=== PATIENT | female | born 1950 | race Caucasian/White ===

== ENCOUNTER → 2016-09-14 | Outpatient (REF) | payer MEDICARE, MEDICAID ==
[2016-09-14 11:56] LABS: MEAN CORPUSCULAR HEMOGLOBIN 30.8 pg (27.0-33.0); MEAN CORPUSCULAR HGB CONC 32.9 g/dl (32.0-36.5); MEAN CORPUSCULAR VOLUME 93.6 fl (80.0-96.0); RED CELL DISTRIBUTION WIDTH 12.9 % (11.5-14.5); WHITE BLOOD COUNT 8.1 K/mm3 (4.0-10.0)
[2016-09-14 12:45] LABS: ALBUMIN 3.2 GM/DL (3.2-5.2); ALBUMIN/GLOBULIN RATIO 0.94 (1.00-1.93); ALKALINE PHOSPHATASE 103 U/L (45-117); ALT/SGPT 22 U/L (12-78); ANION GAP 8 MEQ/L (8-16); AST/SGOT 13 U/L (15-37); BILIRUBIN,TOTAL 0.3 MG/DL (0.2-1.0); BLOOD UREA NITROGEN 12 MG/DL (7-18); CALCIUM LEVEL 9.3 MG/DL (8.8-10.2); CARBON DIOXIDE LEVEL 29 MEQ/L (21-32); CHLORIDE LEVEL 103 MEQ/L (98-107); CHOLESTEROL LEVEL 164 MG/DL (<200); CREATININE FOR GFR 0.49 MG/DL (0.55-1.02); FREE T4 1.07 NG/DL (0.76-1.46); GLOMERULAR FILTRATION RATE > 60.0 (>45); GLUCOSE, FASTING 170 MG/DL (80-110); POTASSIUM SERUM 4.7 MEQ/L (3.5-5.1); SODIUM LEVEL 140 MEQ/L (136-145); TOTAL PROTEIN 6.6 GM/DL (6.4-8.2); TRIGLYCERIDES LEVEL 194 MG/DL (<150)
== END ==
LOC: M SFHCPLAZ 09:44
PROVIDERS: ATTEND Nurse Practitioner Family
DX: F32.9 Major depressive disorder, single episode, unspecified (principal); E11.65 Type 2 diabetes mellitus with hyperglycemia; E78.2 Mixed hyperlipidemia; E55.9 Vitamin D deficiency, unspecified

== ENCOUNTER → 2016-10-29 | Outpatient (REF) | payer MEDICARE, MEDICAID | LOC: M SFHCPLAZ 09:30 | PROVIDERS: ATTEND Nurse Practitioner Family | DX: G47.00 Insomnia, unspecified (principal) | CPT/HCPCS: 82043; G0463 ==

== ENCOUNTER → 2016-12-07 | Outpatient (CLI) | payer MEDICARE, MEDICAID ==
--- NOTE | 2016-12-07 18:01 | REP ---
LOW DOSE LUNG SCREENING CT: Low dose lung screening CT exam performed in the axial plane. Scattered linear fibrotic scarring is seen bilaterally. In the superior posterior right upper lobe there is a 2 mm nodular opacity. In the right middle lobe medially is a 3 mm nodular opacity with adjacent linear scarring. No other suspicious nodular opacities are seen. There are degenerative changes of the spine. There are atherosclerotic calcifications of thoracic aorta. There is no aneurysmal dilatation of the thoracic aorta. IMPRESSION: Two tiny nodular opacities are seen in the right lung measuring 2 and [address] of the chest in one year. Signed by Mark Ott MD 12/08/2016 12:33 P
== END ==
LOC: M RAD 15:21
PROVIDERS: ATTEND Nurse Practitioner Family
DX: Z87.891 Personal history of nicotine dependence (principal); R91.8 Other nonspecific abnormal finding of lung field

== ENCOUNTER → 2017-01-28 | Outpatient (REF) | payer MEDICARE, MEDICAID ==
[2017-01-28 12:48] LABS: ALBUMIN/GLOBULIN RATIO 1.21 (1.00-1.93); ALKALINE PHOSPHATASE 137 U/L (45-117); ALT/SGPT 41 U/L (12-78); ANION GAP 8 MEQ/L (8-16); AST/SGOT 15 U/L (15-37); BILIRUBIN,TOTAL 0.4 MG/DL (0.2-1.0); BLOOD UREA NITROGEN 9 MG/DL (7-18); CALCIUM LEVEL 9.9 MG/DL (8.8-10.2); CARBON DIOXIDE LEVEL 31 MEQ/L (21-32); CHLORIDE LEVEL 99 MEQ/L (98-107); CREATININE FOR GFR 0.61 MG/DL (0.55-1.02); GLOMERULAR FILTRATION RATE > 60.0 (>45); GLUCOSE, FASTING 294 MG/DL (80-110); POTASSIUM SERUM 3.9 MEQ/L (3.5-5.1); SODIUM LEVEL 138 MEQ/L (136-145); TOTAL PROTEIN 7.3 GM/DL (6.4-8.2)
== END ==
LOC: M SFHCPLAZ 09:51
PROVIDERS: ATTEND Nurse Practitioner Family
DX: E11.65 Type 2 diabetes mellitus with hyperglycemia (principal)

== ENCOUNTER → 2017-04-23 | Outpatient (REF) | payer MEDICARE, MEDICAID ==
[2017-04-23 13:08] LABS: ALBUMIN 3.8 GM/DL (3.2-5.2); ALBUMIN/GLOBULIN RATIO 1.19 (1.00-1.93); ALKALINE PHOSPHATASE 129 U/L (45-117); ALT/SGPT 90 U/L (12-78); ANION GAP 9 MEQ/L (8-16); AST/SGOT 38 U/L (7-37); BILIRUBIN,TOTAL 0.3 MG/DL (0.2-1.0); BLOOD UREA NITROGEN 12 MG/DL (7-18); CALCIUM LEVEL 9.5 MG/DL (8.8-10.2); CARBON DIOXIDE LEVEL 29 MEQ/L (21-32); CHLORIDE LEVEL 103 MEQ/L (98-107); GLOMERULAR FILTRATION RATE > 60.0 (>45); GLUCOSE, FASTING 227 MG/DL (80-110); POTASSIUM SERUM 4.7 MEQ/L (3.5-5.1); SODIUM LEVEL 141 MEQ/L (136-145)
[2017-04-23 13:16] LABS: ESTIMATED AVERAGE GLUCOSE 269 MG/DL (60-110)
== END ==
LOC: M SFHCPLAZ 09:54
DX: E11.65 Type 2 diabetes mellitus with hyperglycemia (principal); E55.9 Vitamin D deficiency, unspecified
CPT/HCPCS: 80053

== ENCOUNTER → 2017-06-15 | Outpatient (CLI) | payer MEDICARE | LOC: M WHC 08:29 | DX: R79.89 Other specified abnormal findings of blood chemistry (principal) | CPT/HCPCS: 76705 ==

== ENCOUNTER → 2017-07-13 | Outpatient (REF) | payer MEDICARE, MEDICAID ==
[2017-07-13 13:52] LABS: ALBUMIN 3.9 GM/DL (3.2-5.2); ALBUMIN/GLOBULIN RATIO 1.22 (1.00-1.93); ALKALINE PHOSPHATASE 126 U/L (45-117); ALT/SGPT 42 U/L (12-78); ANION GAP 9 MEQ/L (8-16); AST/SGOT 24 U/L (7-37); BILIRUBIN,TOTAL 0.4 MG/DL (0.2-1.0); BLOOD UREA NITROGEN 9 MG/DL (7-18); CALCIUM LEVEL 9.7 MG/DL (8.8-10.2); CARBON DIOXIDE LEVEL 26 MEQ/L (21-32); CHLORIDE LEVEL 102 MEQ/L (98-107); CREATININE FOR GFR 0.73 MG/DL (0.55-1.30); GLOMERULAR FILTRATION RATE > 60.0 (>45); GLUCOSE, FASTING 285 MG/DL (70-100); POTASSIUM SERUM 4.4 MEQ/L (3.5-5.1); SODIUM LEVEL 137 MEQ/L (136-145); TOTAL PROTEIN 7.1 GM/DL (6.4-8.2)
[2017-07-13 14:00] LABS: TOTAL 25(OH) VITAMIN D 28.9 NG/ML (30.0-100.0)
[2017-07-13 14:43] LABS: ESTIMATED AVERAGE GLUCOSE 266 MG/DL (60-110); HEMOGLOBIN A1c 10.9 %
== END ==
LOC: M SFHCPLAZ 10:53
DX: R79.89 Other specified abnormal findings of blood chemistry (principal); E11.65 Type 2 diabetes mellitus with hyperglycemia; E55.9 Vitamin D deficiency, unspecified
CPT/HCPCS: 80053

== ENCOUNTER → 2017-11-17 | Outpatient (REF) | payer MEDICARE, MEDICAID ==
[2017-11-17 13:07] LABS: ALBUMIN 4.1 GM/DL (3.2-5.2); ALBUMIN/GLOBULIN RATIO 1.24 (1.00-1.93); ALKALINE PHOSPHATASE 149 U/L (45-117); ALT/SGPT 115 U/L (12-78); ANION GAP 8 MEQ/L (8-16); AST/SGOT 48 U/L (7-37); BILIRUBIN,TOTAL 0.5 MG/DL (0.2-1.0); BLOOD UREA NITROGEN 10 MG/DL (7-18); CALCIUM LEVEL 9.6 MG/DL (8.8-10.2); CARBON DIOXIDE LEVEL 28 MEQ/L (21-32); CHLORIDE LEVEL 104 MEQ/L (98-107); CHOLESTEROL LEVEL 167 MG/DL (<200); CHOLESTEROL RISK RATIO 2.879 (<5); CREATININE FOR GFR 0.59 MG/DL (0.55-1.30); GLOMERULAR FILTRATION RATE > 60.0 (>45); GLUCOSE, FASTING 189 MG/DL (70-100); HDL CHOLESTEROL 58 MG/DL (>40); NON-HDL-C 109 MG/DL; POTASSIUM SERUM 4.1 MEQ/L (3.5-5.1); SODIUM LEVEL 140 MEQ/L (136-145); TOTAL PROTEIN 7.4 GM/DL (6.4-8.2); TRIGLYCERIDES LEVEL 150 MG/DL (<150)
[2017-11-17 13:25] LABS: ESTIMATED AVERAGE GLUCOSE 209 MG/DL (60-110); HEMOGLOBIN A1c 8.9 %
[2017-11-17 13:34] LABS: MALB URINE SIEMENS 74.7 MG/L; MAU/CREAT RATIO 45.8 MCG/MG (0.0-30.0)
== END ==
LOC: M SFHCPLAZ 09:03
DX: E11.65 Type 2 diabetes mellitus with hyperglycemia (principal); E78.2 Mixed hyperlipidemia
CPT/HCPCS: 80053

== ENCOUNTER → 2018-03-30 | Outpatient (REF) | payer MEDICARE, MEDICAID ==
[2018-03-30 12:22] LABS: ALBUMIN 3.7 GM/DL (3.2-5.2); ALBUMIN/GLOBULIN RATIO 1.19 (1.00-1.93); ALKALINE PHOSPHATASE 158 U/L (45-117); ALT/SGPT 44 U/L (12-78); ANION GAP 9 MEQ/L (8-16); AST/SGOT 30 U/L (7-37); BILIRUBIN,TOTAL 0.3 MG/DL (0.2-1.0); BLOOD UREA NITROGEN 11 MG/DL (7-18); CALCIUM LEVEL 9.3 MG/DL (8.8-10.2); CARBON DIOXIDE LEVEL 25 MEQ/L (21-32); CHLORIDE LEVEL 106 MEQ/L (98-107); CREATININE FOR GFR 0.71 MG/DL (0.55-1.30); GLOMERULAR FILTRATION RATE > 60.0 (>39); GLUCOSE, FASTING 252 MG/DL (70-100); POTASSIUM SERUM 4.1 MEQ/L (3.5-5.1); SODIUM LEVEL 140 MEQ/L (136-145); TOTAL PROTEIN 6.8 GM/DL (6.4-8.2)
[2018-03-30 14:15] LABS: ESTIMATED AVERAGE GLUCOSE 278 MG/DL (60-110); HEMOGLOBIN A1c 11.3 %
== END ==
LOC: M SFHCPLAZ 08:42
DX: R94.5 Abnormal results of liver function studies (principal); E11.65 Type 2 diabetes mellitus with hyperglycemia
CPT/HCPCS: 80053

== ENCOUNTER → 2018-07-05 | Outpatient (CLI) | payer MEDICARE ==
--- NOTE | 2018-07-05 18:26 | REP ---
RIGHT UPPER QUADRANT ULTRASOUND: 07/05/2018. Comparison: 06/15/2017. Clinical history: Elevated LFTs. Findings: Sonographic evaluation shows the liver with a subtly heterogeneous or coarsened echotexture, particularly in the right lobe. No gross hepatic mass or intrahepatic biliary dilatation. Hepatic contours are fairly smooth. No hepatic cyst evident nor ascites. Gallbladder measures 9.1 x 3.2 x 2 cm with normal wall thickness of 2 mm. No pericholecystic fluid. Some sludge but no stone visible. Common duct 5.8 mm, normal for age. Pancreas grossly unremarkable. The right kidney is 11.7 x 4.9 x 4.9 cm. Impression: 1. The coarsened slightly heterogeneous echotexture to the right hepatic lobe may reflect some underlying liver disease. I do not see discrete mass, hepatomegaly, intrahepatic biliary dilatation nor adjacent ascites. 2. Gallbladder with some small amounts of sludge but normal wall thickness and no stone or mass. 3. Common duct 5.8 mm and normal without a filling defect. Pancreas and right kidney unremarkable.
== END ==
LOC: M WHC 09:07
PROVIDERS: ATTEND Nurse Practitioner Family
DX: R10.11 Right upper quadrant pain (principal)

== ENCOUNTER → 2018-08-04 | Outpatient (REF) | payer MEDICARE, MEDICAID ==
[2018-08-04 13:15] LABS: ALBUMIN 3.7 GM/DL (3.2-5.2); ALT/SGPT 20 U/L (12-78); BILIRUBIN,TOTAL 0.5 MG/DL (0.2-1.0); BLOOD UREA NITROGEN 5 MG/DL (7-18); CALCIUM LEVEL 9.5 MG/DL (8.8-10.2); CARBON DIOXIDE LEVEL 30 MEQ/L (21-32); CHLORIDE LEVEL 104 MEQ/L (98-107); CHOLESTEROL LEVEL 137 MG/DL (<200); CHOLESTEROL RISK RATIO 2.584 (<5); CREATININE FOR GFR 0.56 MG/DL (0.55-1.30); GLOMERULAR FILTRATION RATE > 60.0 (>39); GLUCOSE, FASTING 178 MG/DL (70-100); HDL CHOLESTEROL 53 MG/DL (>40); LDL CHOLESTEROL 62 MG/DL (<100); NON-HDL-C 84 MG/DL; POTASSIUM SERUM 3.8 MEQ/L (3.5-5.1); SODIUM LEVEL 141 MEQ/L (136-145); TRIGLYCERIDES LEVEL 109 MG/DL (<150)
[2018-08-04 13:27] LABS: HEMOGLOBIN A1c 11.3 %
== END ==
LOC: M SFHCPLAZ 10:02
PROVIDERS: ATTEND Nurse Practitioner Family
DX: E11.65 Type 2 diabetes mellitus with hyperglycemia (principal)

== ENCOUNTER → 2018-08-10 | Outpatient (CLI) | payer MEDICARE, MEDICAID ==
[2018-08-10 12:10] LABS: HEMATOCRIT 43.4 % (36.0-47.0); MEAN CORPUSCULAR HEMOGLOBIN 28.9 pg (27.0-33.0); MEAN CORPUSCULAR HGB CONC 32.3 g/dl (32.0-36.5); MEAN CORPUSCULAR VOLUME 89.5 fl (80.0-96.0); PLATELET COUNT, AUTOMATED 101 10^3/uL (150-450); RED BLOOD COUNT 4.85 10^6/uL (4.00-5.40); WHITE BLOOD COUNT 8.2 10^3/uL (4.0-10.0)
[2018-08-10 12:21] LABS: INR 0.99; PROTHROMBIN TIME 13.2 SECONDS (12.1-14.4)
[2018-08-10 12:22] LABS: PARTIAL THROMBOPLASTIN TIME 34.3 SECONDS (25.4-37.6)
[2018-08-10 12:35] LABS: ALBUMIN 3.5 GM/DL (3.2-5.2); ALT/SGPT 19 U/L (12-78); AMYLASE 33 U/L (25-115); BILIRUBIN,TOTAL 0.4 MG/DL (0.2-1.0); BLOOD UREA NITROGEN 10 MG/DL (7-18); CALCIUM LEVEL 9.1 MG/DL (8.8-10.2); CARBON DIOXIDE LEVEL 30 MEQ/L (21-32); CHLORIDE LEVEL 107 MEQ/L (98-107); CREATININE FOR GFR 0.61 MG/DL (0.55-1.30); GLOMERULAR FILTRATION RATE > 60.0 (>39); GLUCOSE, FASTING 186 MG/DL (70-100); LIPASE 109 U/L (73-393); POTASSIUM SERUM 3.6 MEQ/L (3.5-5.1); SODIUM LEVEL 143 MEQ/L (136-145); TOTAL PROTEIN 6.6 GM/DL (6.4-8.2)
== END ==
LOC: M LAB 11:21
PROVIDERS: ATTEND Internal Medicine Gastroenterology
DX: R16.0 Hepatomegaly, not elsewhere classified (principal)

== ENCOUNTER → 2018-08-11 | Outpatient (REF) | payer MEDICARE, MEDICAID ==
[2018-08-11 17:06] LABS: MAU/CREAT RATIO 63.6 MCG/MG (0.0-30.0)
== END ==
LOC: M SFHCPLAZ 14:42
PROVIDERS: ATTEND Nurse Practitioner Family
DX: E11.65 Type 2 diabetes mellitus with hyperglycemia (principal)

== ENCOUNTER → 2018-08-17 | Outpatient (CLI) | payer MEDICARE, MEDICAID ==
[~2018-08-17] MED LIST: GASTROGRAFIN SOLUTION 30ML (Q9963) As Ordered ONE; ISOVUE-370 76% 100ML VIAL (Q9967) As Ordered ONE
--- NOTE | 2018-08-17 15:17 | REP ---
CT ABDOMEN AND PELVIS WITH IV AND ORAL CONTRAST: HISTORY: Hepatomegaly. Abnormal weight loss. COMPARISON SONOGRAPHY: July 05, 2018 CT CONTRAST DOSE: 100 mL of intravenous Isovue [address] FINDINGS: Digital preliminary force adjustment supervisor radiograph shows a prominent hepatic silhouette. Bowel gas pattern is normal. The lung bases are clear on axial CT images apart from some minimal linear fibrosis in the left base. There are normal-sized epicardial fat lymph nodes noted incidentally. There is a lymph node adjacent to the distal esophagus at the diaphragmatic hiatus measuring 10 mm in short-axis dimension. There are two normal-sized pericaval lymph nodes at this level in the suprahepatic vena cava. The left lobe of the liver is hypertrophied. The liver span is near the upper range of normal in size measuring 15.5 cm in the midclavicular line. Liver contour is micronodular. This may reflect early cirrhosis. There is also mild diffuse fatty infiltration of the liver. No focal liver mass lesion is seen. The spleen is borderline in size measuring 12.7 cm in greatest diameter. There is bilateral adrenal hyperplasia, mild in degree. No abnormalities noted in the gallbladder. The pancreas is unremarkable. The kidneys enhance symmetrically. There are tiny cortical cysts in each superior pole. There appears to be a 2 mm intrarenal calculus in the lower pole of the left kidney. No hydronephrosis is seen. There is mural thickening diffusely affecting the colon, most prominent from splenic flexure through sigmoid segments. There is no evidence of diverticulosis or diverticulitis. Findings are more compatible with enterocolitis. Small bowel loops are unremarkable. Appendix is not directly visualized. There is no inflammatory change. Ileocecal valve and terminal ileum are unremarkable. No abnormal fluid collection is observed. IMPRESSION: Hepatomegaly with fatty infiltration, a micronodular contour, hypertrophy of the left lobe consistent with early cirrhosis. No evidence of ascites. Enterocolitis picture with mural thickening moderate in degree affecting the left colon from splenic flexure through sigmoid segment. Scattered normal-sized upper abdominal lymph nodes. Tiny intrarenal calculus lower pole left kidney. Fairly advanced vascular calcification. Electronically Signed by Germán Cherry MD 08/17/2018 04:05 P
== END ==
LOC: M RAD 11:16
PROVIDERS: ATTEND Internal Medicine Gastroenterology
DX: R16.0 Hepatomegaly, not elsewhere classified (principal); K76.0 Fatty (change of) liver, not elsewhere classified; N20.0 Calculus of kidney; R63.4 Abnormal weight loss
CPT/HCPCS: 74177; Q9963; Q9967

== ENCOUNTER → 2018-08-23 | Outpatient (REF) | payer MEDICARE, MEDICAID ==
[2018-08-24 15:33] LABS: CLOSTRIDIUM DIFFICILE PCR NEGATIVE (NEGATIVE)
== END ==
LOC: M LAB REF 14:08
PROVIDERS: ATTEND Internal Medicine Gastroenterology
DX: R19.7 Diarrhea, unspecified (principal)

== ENCOUNTER 2018-08-30 09:53 | Day surgery (SDC) | payer MEDICARE, MEDICAID ==
[~2018-08-30] VITALS: Ht 180.3 cm; Wt 58.1 kg
[~2018-08-30 09:53] MED LIST changes: +ATOR40TA75 PO; +ECOT81TA5 PO; -GASTROGRAFIN SOLUTION 30ML (Q9963) As Ordered ONE; -ISOVUE-370 76% 100ML VIAL (Q9967) As Ordered ONE; +JANU50TA8 PO; +LANTINJ4 SC; +NS 1,000 ML IV ONE; +OMEP40CA2 PO; +PAXI40TA10 PO
[2018-08-30] MEDS ORDERED: PROPOFOL 200 MG/20 ML VIAL As Ordered ONE (09:58)
[2018-08-30] MEDS ORDERED: LIDOCAINE 2% INJ 100 MG/5 ML SDV (FOR ANES.) As Ordered ONE (09:58)
--- NOTE | 2018-08-30 12:21 | ROOR ---
Patient Name: Natalia Anders Procedure Date: 08/30/2018 12:01 PM Date of : 1950 Age: 68 Room: [facility] Gender: Female Note Status: Finalized Procedure: Upper GI endoscopy Indications: Weight loss Providers: Nader DIAZ MD Referring MD: Nataliya Quiñones NP Requesting Provider: Medicines: Monitored Anesthesia Care Complications: No immediate complications. Procedure: Pre-Anesthesia Assessment: - The heart rate, respiratory rate, oxygen saturations, blood pressure, adequacy of pulmonary ventilation, and response to care were monitored throughout the procedure. The Endoscope was introduced through the mouth, and advanced to the second part of duodenum. The upper GI endoscopy was accomplished without difficulty. The patient tolerated the procedure well. Findings: Grade II varices were found in the middle third of the esophagus and in the lower third of the esophagus. Four bands were successfully placed with complete eradication, resulting in deflation of varices. There was no bleeding at the end of the procedure. Mild portal hypertensive gastropathy was found in the gastric fundus and in the gastric body. This was biopsied with a cold forceps for histology. The exam was otherwise without abnormality. Impression: - Grade II esophageal varices. Completely eradicated. Banded. - Portal hypertensive gastropathy. Biopsied. - The examination was otherwise normal. Recommendation: - Full liquid diet for 1 week. - Repeat upper endoscopy in 1 month for retreatment. - My office will call you to reschedule the procedure. - Give a beta jl with dosage titrated by the heart rate. - Start/continue a Non-selective Beta Jl such as Propranolol or Nadolol, titrate to heart rate. - (the script was sent to your pharmacy on file) Nader Diaz MD Nader DIAZ MD 08/30/2018 12:21:12 PM Electronically signed by Nader DIAZ MD Number of Addenda: 0 Note Initiated On: 08/30/2018 12:01 PM Estimated Blood Loss: Estimated blood loss: none.
[2018-08-30] MEDS ORDERED: LABETALOL HCL 100 MG/20 ML VIAL As Ordered ONE (12:26)
[2018-08-30] MEDS ORDERED: fentaNYL 100 MCG/2 ML INJECTION (J3010) As Ordered ONE (12:32)
--- NOTE | 2018-08-30 12:45 | ROOR ---
Patient Name: Natalia Anders Procedure Date: 08/30/2018 12:02 PM Date of : 1950 Age: 68 Room: [facility] Gender: Female Note Status: Finalized Procedure: Colonoscopy Indications: Weight loss Providers: Nader DIAZ MD Referring MD: Nataliya Quiñones NP Requesting Provider: Medicines: Monitored Anesthesia Care Complications: No immediate complications. Procedure: Pre-Anesthesia Assessment: - The heart rate, respiratory rate, oxygen saturations, blood pressure, adequacy of pulmonary ventilation, and response to care were monitored throughout the procedure. The Colonoscope was introduced through the anus and advanced to the cecum, identified by appendiceal orifice and ileocecal valve. The colonoscopy was performed without difficulty. The patient tolerated the procedure well. The quality of the bowel preparation was poor. Findings: The perianal and digital rectal examinations were normal. (Colon Prep was POOR, Inadequate Visualisation) Three semi-pedunculated polyps were found in the hepatic flexure and distal ascending colon. The polyps were 5 to 10 mm in size. These polyps were removed with a hot snare. Resection and retrieval were complete. To prevent bleeding after the polypectomy, two hemostatic clips were successfully placed. There was no bleeding at the end of the procedure. Internal hemorrhoids were found during retroflexion. The hemorrhoids were moderate. Impression: - (Colon Prep was POOR, Inadequate Visualisation) - Three 5 to 10 mm polyps at the hepatic flexure and in the distal ascending colon, removed with a hot snare. Resected and retrieved. Clips were placed. - Internal hemorrhoids. Recommendation: - Repeat colonoscopy at next available appointment (within 3 months) because the bowel preparation was poor. - Return to my office in 2 weeks. Nader Diaz MD Nader DIAZ MD 08/30/2018 12:44:58 PM Electronically signed by Nader DIAZ MD Number of Addenda: 0 Note Initiated On: 08/30/2018 12:02 PM Estimated Blood Loss: Estimated blood loss: none.
[2018-08-30 13:17] VITALS: BP 162/71
== END 2018-08-30 13:40 | disposition home or self-care (01) ==
LOC: M OPP 09:53
PROVIDERS: ATTEND Internal Medicine Gastroenterology
DX: D12.2 Benign neoplasm of ascending colon (principal); D12.3 Benign neoplasm of transverse colon; K64.8 Other hemorrhoids; I85.00 Esophageal varices without bleeding; K76.6 Portal hypertension; K31.89 Other diseases of stomach and duodenum; R63.4 Abnormal weight loss

== ENCOUNTER → 2018-11-02 | Outpatient (REF) | payer MEDICARE, MEDICAID ==
[~2018-11-02] MED LIST changes: -NS 1,000 ML IV ONE
[2018-11-02 11:20] LABS: ALBUMIN 3.9 GM/DL (3.2-5.2); ALT/SGPT 63 U/L (12-78); BILIRUBIN,TOTAL 0.4 MG/DL (0.2-1.0); BLOOD UREA NITROGEN 11 MG/DL (7-18); CALCIUM LEVEL 9.8 MG/DL (8.8-10.2); CARBON DIOXIDE LEVEL 28 MEQ/L (21-32); CHLORIDE LEVEL 107 MEQ/L (98-107); CREATININE FOR GFR 0.61 MG/DL (0.55-1.30); GLOMERULAR FILTRATION RATE > 60.0 (>39); GLUCOSE, FASTING 148 MG/DL (70-100); POTASSIUM SERUM 4.3 MEQ/L (3.5-5.1); SODIUM LEVEL 142 MEQ/L (136-145); TOTAL PROTEIN 7.3 GM/DL (6.4-8.2)
== END ==
LOC: M SFHCPLAZ 09:52
PROVIDERS: ATTEND Nurse Practitioner Family
DX: E11.65 Type 2 diabetes mellitus with hyperglycemia (principal)

== ENCOUNTER → 2018-11-29 | Outpatient (CLI) | payer MEDICARE, MEDICAID ==
[2018-11-29 17:57] LABS: IRON (FE) 142 UG/DL (50-170); PERCENT SATURATION 35.2 % (13.2-45.0); TOTAL IRON BINDING CAPACITY 403 UG/DL (250-450)
[2018-11-30 10:34] LABS: HEPATITIS B SURFACE ANTIGEN NEGATIVE (NEGATIVE)
[2018-11-30 11:01] LABS: HEPATITIS B CORE ANTIBODY IGM NEGATIVE (NEGATIVE); HEPATITIS C VIRUS ABY INDEX 0.1 INDEX (<0.8)
[2018-11-30 11:03] LABS: HEPATITIS A ANTIBODY IGM NEGATIVE (NEGATIVE)
[2018-12-03 00:06] LABS: ANCA-ATYPICAL <1:20 titer (Neg:<1:20); ANTI-MITOCHONDRIAL ANTIBODY <20.0 Units (0.0-20.0); ANTINUCLEAR ANTIBODIES DIRECT Negative (Negative); CYTOPLASMIC NEUTROP AB ANCA-C <1:20 titer (Neg:<1:20); LIVER-KIDNEY MICROSOMAL ABY <20.1 Units (0.0-20.0); PERINUCLEAR AB ANCA-P <1:20 titer (Neg:<1:20)
== END ==
LOC: M LAB 16:25
PROVIDERS: ATTEND Internal Medicine Gastroenterology
DX: K74.60 Unspecified cirrhosis of liver (principal)

== ENCOUNTER 2019-01-31 10:53 | Day surgery (SDC) | payer MEDICARE, MEDICAID ==
[~2019-01-31] VITALS: Ht 154.9 cm; Wt 59.4 kg
[~2019-01-31 10:53] MED LIST changes: +BUSP1TAB PO; +LIDOCAINE 2% INJ 100 MG/5 ML SDV (FOR ANES.) As Ordered ONE; +LISI-542 PO; +NS 1,000 ML IV ONE; -OMEP40CA2 PO; +OMEP40CA97 PO; +propofoL 200 MG/20 ML VIAL As Ordered ONE
--- NOTE | 2019-01-31 12:02 | ROOR ---
Patient Name: Natalia Anders Procedure Date: 01/31/2019 11:43 AM Date of : 1950 Age: 68 Room: [facility] Gender: Female Note Status: Finalized Procedure: Upper GI endoscopy Indications: Follow-up of esophageal varices, For therapy of esophageal varices Providers: Nader DIAZ MD Referring MD: Nataliya Quiñones NP Requesting Provider: Medicines: Monitored Anesthesia Care Complications: No immediate complications. Procedure: Pre-Anesthesia Assessment: - The heart rate, respiratory rate, oxygen saturations, blood pressure, adequacy of pulmonary ventilation, and response to care were monitored throughout the procedure. The Endoscope was introduced through the mouth, and advanced to the second part of duodenum. The upper GI endoscopy was accomplished without difficulty. The patient tolerated the procedure well. Findings: Grade II varices were found in the lower third of the esophagus. Four bands were successfully placed with complete eradication, resulting in deflation of varices. There was no bleeding during and at the end of the procedure. The entire examined stomach was normal. The examined duodenum was normal. Impression: - Grade II esophageal varices. Primary prevention/Completely eradicated. Banded. - Normal stomach. - Normal examined duodenum. - No specimens collected. Recommendation: - Repeat upper endoscopy in 2 months for retreatment. - Return to my office in 1 month. Nader Diaz MD Nader DIAZ MD 01/31/2019 12:02:10 PM Electronically signed by Nader DIAZ MD Number of Addenda: 0 Note Initiated On: 01/31/2019 11:43 AM Estimated Blood Loss: Estimated blood loss: none.
[2019-01-31] MEDS ORDERED: ESMOLOL INJ 100MG/10ML VIAL As Ordered ONE (12:10)
--- NOTE | 2019-01-31 12:24 | ROOR ---
Patient Name: Natalia Anders Procedure Date: 01/31/2019 11:43 AM Date of : 1950 Age: 68 Room: [facility] Gender: Female Note Status: Finalized Procedure: Colonoscopy Indications: Screening for colorectal malignant neoplasm Providers: Nader DIAZ MD Referring MD: Nataliya Quiñones NP Requesting Provider: Medicines: Monitored Anesthesia Care Complications: No immediate complications. Procedure: Pre-Anesthesia Assessment: - The heart rate, respiratory rate, oxygen saturations, blood pressure, adequacy of pulmonary ventilation, and response to care were monitored throughout the procedure. The Colonoscope was introduced through the anus and advanced to the terminal ileum, with identification of the appendiceal orifice and IC valve. The colonoscopy was somewhat difficult due to unsatisfactory bowel prep. Successful completion of the procedure was aided by lavage. The patient tolerated the procedure well. The quality of the bowel preparation was fair. Findings: The perianal and digital rectal examinations were normal. Three sessile polyps were found in the proximal descending colon and splenic flexure. The polyps were 4 to 5 mm in size. These polyps were removed with a cold snare. Resection and retrieval were complete. Multiple medium-mouthed diverticula were found in the sigmoid colon. The exam was otherwise without abnormality on direct and retroflexion views. Impression: - Preparation of the colon was fair. - Three 4 to 5 mm polyps in the proximal descending colon and at the splenic flexure, removed with a cold snare. Resected and retrieved. - Diverticulosis in the sigmoid colon. - The examination was otherwise normal on direct and retroflexion views. Recommendation: - Repeat colonoscopy in 2 years because the bowel preparation was suboptimal. Nader Diaz MD Nader DIAZ MD 01/31/2019 12:24:15 PM Electronically signed by Nader DIAZ MD Number of Addenda: 0 Note Initiated On: 01/31/2019 11:43 AM Estimated Blood Loss: Estimated blood loss: none.
[2019-01-31 13:45] VITALS: BP 168/84
== END 2019-01-31 13:35 | disposition home or self-care (01) ==
LOC: M OPP 10:53
PROVIDERS: ATTEND Internal Medicine Gastroenterology
DX: Z12.11 Encounter for screening for malignant neoplasm of colon (principal); D12.4 Benign neoplasm of descending colon; D12.3 Benign neoplasm of transverse colon; K57.30 Diverticulosis of large intestine without perforation or abscess without bleeding; I85.00 Esophageal varices without bleeding; I10 Essential (primary) hypertension; E78.5 Hyperlipidemia, unspecified; E11.9 Type 2 diabetes mellitus without complications; K21.9 Gastro-esophageal reflux disease without esophagitis; F41.9 Anxiety disorder, unspecified; K74.60 Unspecified cirrhosis of liver; Z78.0 Asymptomatic menopausal state; F17.210 Nicotine dependence, cigarettes, uncomplicated; Z79.4 Long term (current) use of insulin; Z79.899 Other long term (current) drug therapy

== ENCOUNTER → 2019-02-08 | Outpatient (REF) | payer MEDICARE, MEDICAID ==
[~2019-02-08] MED LIST changes: -LIDOCAINE 2% INJ 100 MG/5 ML SDV (FOR ANES.) As Ordered ONE; -NS 1,000 ML IV ONE; -propofoL 200 MG/20 ML VIAL As Ordered ONE
[2019-02-08 17:06] LABS: ALT/SGPT 32 U/L (12-78); BILIRUBIN,TOTAL 0.4 MG/DL (0.2-1.0); BLOOD UREA NITROGEN 10 MG/DL (7-18); CALCIUM LEVEL 9.9 MG/DL (8.8-10.2); CARBON DIOXIDE LEVEL 32 MEQ/L (21-32); CHLORIDE LEVEL 104 MEQ/L (98-107); FREE T4 1.07 NG/DL (0.76-1.46); GLOMERULAR FILTRATION RATE > 60.0 (>39); GLUCOSE, FASTING 227 MG/DL (70-100); POTASSIUM SERUM 3.9 MEQ/L (3.5-5.1); SODIUM LEVEL 140 MEQ/L (136-145); THYROID STIMULATING HORMONE 0.899 uIU/ML (0.358-3.740); TOTAL PROTEIN 7.4 GM/DL (6.4-8.2)
[2019-02-08 17:07] LABS: HEMOGLOBIN A1c 10.5 %
== END ==
LOC: M SFHCPLAZ 13:41
PROVIDERS: ATTEND Nurse Practitioner Family
DX: E11.65 Type 2 diabetes mellitus with hyperglycemia (principal); F41.1 Generalized anxiety disorder

== ENCOUNTER → 2019-05-03 | Outpatient (CLI) | payer MEDICARE, MEDICAID ==
[2019-05-03 15:10] LABS: INR 1.03; PROTHROMBIN TIME 13.2 SECONDS (11.8-14.0)
[2019-05-03 15:24] LABS: ALT/SGPT 38 U/L (12-78); BILIRUBIN,DIRECT < 0.1 MG/DL (0.0-0.2); BILIRUBIN,TOTAL 0.5 MG/DL (0.2-1.0); TOTAL PROTEIN 7.4 GM/DL (6.4-8.2)
== END ==
LOC: M LAB 13:54
PROVIDERS: ATTEND Internal Medicine Gastroenterology
DX: K75.81 Nonalcoholic steatohepatitis (NASH) (principal)

== ENCOUNTER → 2019-06-29 | Outpatient (REF) | payer MEDICARE, MEDICAID ==
[2019-06-29 13:38] LABS: CREATININE, URINE 90.5 MG/DL; MAU/CREAT RATIO 130.3 MCG/MG (0.0-30.0)
[2019-06-29 13:46] LABS: ALBUMIN 4.2 GM/DL (3.2-5.2); ALT/SGPT 58 U/L (12-78); BILIRUBIN,TOTAL 0.7 MG/DL (0.2-1.0); BLOOD UREA NITROGEN 13 MG/DL (7-18); CALCIUM LEVEL 9.3 MG/DL (8.8-10.2); CARBON DIOXIDE LEVEL 28 MEQ/L (21-32); CHLORIDE LEVEL 103 MEQ/L (98-107); CHOLESTEROL LEVEL 218 MG/DL (<200); CHOLESTEROL RISK RATIO 3.406 (<5); CREATININE FOR GFR 0.64 MG/DL (0.55-1.30); GLOMERULAR FILTRATION RATE > 60.0 (>39); GLUCOSE, FASTING 298 MG/DL (70-100); HDL CHOLESTEROL 64 MG/DL (>40); LDL CHOLESTEROL 128 MG/DL (<100); NON-HDL-C 154 MG/DL; POTASSIUM SERUM 4.1 MEQ/L (3.5-5.1); SODIUM LEVEL 137 MEQ/L (136-145); TOTAL 25(OH) VITAMIN D 11.4 NG/ML (30.0-100.0); TOTAL PROTEIN 7.6 GM/DL (6.4-8.2); TRIGLYCERIDES LEVEL 130 MG/DL (<150)
[2019-06-29 13:59] LABS: HEMOGLOBIN A1c 10.1 %
== END ==
LOC: M SFHCPLAZ 09:01
PROVIDERS: ATTEND Nurse Practitioner Family
DX: K74.60 Unspecified cirrhosis of liver (principal); E11.65 Type 2 diabetes mellitus with hyperglycemia; E78.2 Mixed hyperlipidemia; E55.9 Vitamin D deficiency, unspecified

== ENCOUNTER → 2019-07-03 | Outpatient (CLI) | payer MEDICARE, MEDICAID ==
--- NOTE | 2019-07-03 11:24 | REP ---
Right upper quadrant sonography: History: Nonalcoholic standard hepatitis. Comparison study: Comparison CT study August 17, 2018. Findings: Scanning through the right upper quadrant of the abdomen demonstrates a normal sized, thin-walled gallbladder without evidence of stone or polyp. Common bile duct is normal measuring 0.4 cm in greatest diameter. No focal liver lesion is seen. Liver size is near the upper range of normal measuring 17.6 cm in craniocaudal span. Liver texture is somewhat coarse. No pancreatic abnormality is observed. No right renal abnormality is seen. There is no evidence of ascites. The right kidney measures 11.9 x 5.0 x 4.7 cm. Impression: Borderline liver size and slightly coarse liver texture. No mass lesion seen. Otherwise negative right upper quadrant sonography. Electronically Signed by Germán Cherry MD 07/03/2019 11:16 A
== END ==
LOC: M RAD 09:20
PROVIDERS: ATTEND Internal Medicine Gastroenterology
DX: K75.81 Nonalcoholic steatohepatitis (NASH) (principal)

== ENCOUNTER → 2019-07-19 | Outpatient (CLI) | payer MEDICARE, MEDICAID ==
--- NOTE | 2019-07-19 16:04 | REP ---
CT chest without contrast: Low-dose screening exam. History: Nicotine dependence. Comparison CT study is from December 07, 2016. CT findings: There has been no change in the size or appearance of the right middle lobe nodule 4 mm in diameter. This is seen on page 49 of 93 in series 301 of today's study. It is unchanged from November 2016. Similarly, there is a nodule in the posterior segment of the right upper lobe 3 mm in diameter which is also unchanged from the November 2016 study. No new pulmonary nodule is appreciated. There is minimal linear fibrosis in the left lower lobe lingula and right middle lobe. Vascular calcifications noted. Impression: Lung RADS category II findings. Repeat screening CT study recommended in 1 year. Electronically Signed by Germán Cherry MD 07/19/2019 04:28 P
== END ==
LOC: M RAD 14:40
PROVIDERS: ATTEND Nurse Practitioner Family
DX: Z87.891 Personal history of nicotine dependence (principal)

== ENCOUNTER → 2019-09-22 | Outpatient (CLI) | payer MEDICARE, MEDICAID ==
[~2019-09-22] MED LIST changes: +ATOR80TA59 PO; +JANU50TA25 PO; +LACT10SO29 PO; +OMEP-221 PO; +ONDA-83 PO; +PARO40TA2 PO; +PROP60CA PO
== END ==
LOC: M LABSMTC 10:06
PROVIDERS: ATTEND Anesthesiology
DX: Z01.818 Encounter for other preprocedural examination (principal); Z11.59 Encounter for screening for other viral diseases
CPT/HCPCS: C9803; U0003

== ENCOUNTER 2019-09-25 12:31 | Day surgery (SDC) | payer MEDICARE, MEDICAID ==
[~2019-09-25] VITALS: Ht 154.9 cm; Wt 60.3 kg
[~2019-09-25 12:31] MED LIST changes: +LIDOCAINE 2% 100MG/5ML SDV (FOR ANES.) As Ordered ONE; +NS 1,000 ML IV SCH; +propofoL 200 MG/20 ML VIAL As Ordered ONE
[2019-09-25] MEDS ORDERED: fentaNYL 100 MCG/2 ML INJECTION (J3010) As Ordered ONE (13:26)
--- NOTE | 2019-09-25 14:24 | ROOR ---
Patient Name: Natalia Anders Procedure Date: 09/25/2019 2:07 PM Date of : 1950 Age: 69 Room: [facility] Gender: Female Note Status: Finalized Procedure: Upper GI endoscopy Indications: Portal hypertension with suspected esophageal varices Providers: Nader DIAZ MD Referring MD: Nataliya Quiñones NP Requesting Provider: Medicines: Monitored Anesthesia Care Complications: No immediate complications. Procedure: Pre-Anesthesia Assessment: - The heart rate, respiratory rate, oxygen saturations, blood pressure, adequacy of pulmonary ventilation, and response to care were monitored throughout the procedure. The Endoscope was introduced through the mouth, and advanced to the second part of duodenum. The upper GI endoscopy was accomplished without difficulty. The patient tolerated the procedure well. Findings: Grade II varices were found in the lower third of the esophagus. Three bands were successfully placed with complete eradication, resulting in deflation of varices. The entire examined stomach was normal. The examined duodenum was normal. Impression: - Grade II esophageal varices. Completely eradicated. Banded. - Normal stomach. - Normal examined duodenum. - No specimens collected. Recommendation: - Start/continue a Non-selective Beta Jl such as Propranolol or Nadolol, titrate to heart rate. - Repeat upper endoscopy in 1 month for retreatment. - My office will call you to reschedule the procedure. Nader Diaz MD Nader DIAZ MD 09/25/2019 2:23:58 PM Electronically signed by Nader DIAZ MD Number of Addenda: 0 Note Initiated On: 09/25/2019 2:07 PM Estimated Blood Loss: Estimated blood loss: none.
[2019-09-25 14:58] VITALS: BP 155/67
== END 2019-09-25 15:03 | disposition home or self-care (01) ==
LOC: M OPP 12:31
PROVIDERS: ATTEND Internal Medicine Gastroenterology
DX: I85.10 Secondary esophageal varices without bleeding (principal); K76.6 Portal hypertension; Z79.4 Long term (current) use of insulin; Z79.899 Other long term (current) drug therapy
CPT/HCPCS: 43244; J3010

== ENCOUNTER → 2019-10-12 | Outpatient (REF) | payer MEDICARE, MEDICAID ==
[~2019-10-12] MED LIST changes: -LACT10SO29 PO; +LACT20EL PO; -LIDOCAINE 2% 100MG/5ML SDV (FOR ANES.) As Ordered ONE; -NS 1,000 ML IV SCH; -propofoL 200 MG/20 ML VIAL As Ordered ONE
[2019-10-12 11:48] LABS: ALBUMIN 3.8 GM/DL (3.2-5.2); ALT/SGPT 199 U/L (12-78); BILIRUBIN,TOTAL 0.4 MG/DL (0.2-1.0); BLOOD UREA NITROGEN 8 MG/DL (7-18); CALCIUM LEVEL 9.9 MG/DL (8.8-10.2); CARBON DIOXIDE LEVEL 30 MEQ/L (21-32); CHLORIDE LEVEL 104 MEQ/L (98-107); CHOLESTEROL LEVEL 185 MG/DL (<200); CHOLESTEROL RISK RATIO 2.983 (<5); CREATININE FOR GFR 0.64 MG/DL (0.55-1.30); GLOMERULAR FILTRATION RATE > 60.0 (>39); GLUCOSE, FASTING 212 MG/DL (70-100); HDL CHOLESTEROL 62 MG/DL (>40); LDL CHOLESTEROL 104 MG/DL (<100); NON-HDL-C 123 MG/DL; POTASSIUM SERUM 4.4 MEQ/L (3.5-5.1); SODIUM LEVEL 138 MEQ/L (136-145); TOTAL PROTEIN 7.1 GM/DL (6.4-8.2); TRIGLYCERIDES LEVEL 97 MG/DL (<150)
[2019-10-13 18:33] LABS: TOTAL 25(OH) VITAMIN D 32.2 NG/ML (30.0-100.0)
== END ==
LOC: M SFHCPLAZ 08:16
PROVIDERS: ATTEND Nurse Practitioner Family
DX: E11.65 Type 2 diabetes mellitus with hyperglycemia (principal); Z79.899 Other long term (current) drug therapy

== ENCOUNTER → 2020-05-05 | Day surgery (SDC) | payer MEDICARE, MEDICAID ==
[~2020-05-05] VITALS: Ht 154.9 cm; Wt 63.5 kg
[~2020-05-05] MED LIST changes: +XIFA550T PO
== END | disposition home or self-care (01) ==
LOC: M OPP 10:04
PROVIDERS: ATTEND Internal Medicine Gastroenterology
DX: Z11.52 Encounter for screening for COVID-19 (principal)

== ENCOUNTER 2020-05-10 11:38 | Day surgery (SDC) | payer MEDICARE, MEDICAID ==
[~2020-05-10] VITALS: Ht 152.4 cm; Wt 64.8 kg
[~2020-05-10 11:38] MED LIST changes: +NS 1,000 ML IV ONE
--- OUTSIDE RECORDS SUMMARY | 2020-05-10 11:41 | CCD ---
Author Author [facility] Organization [facility] Address Unknown Phone Unavailable Care Team Providers Care Litigation Specialist Name Role Phone Nataliya Quiñones Unavailable PROBLEMS Type Condition ICD9-CM Code PEM64-CK Code Onset Dates Condition S tatus SNOMED Code Notes Problem Patient's other noncompliance with medication regimen Z91.14 Active 090223528 Problem Vitamin D deficiency E55.9 Active 07059839 Problem Type 2 diabetes mellitus with hyperglycemia E11.65 Active 21455320 Problem Mixed hyperlipidemia E78.2 Active 395216062 Problem Anxiety state F41.1 Active 123775849 Problem Noncompliance with diet and medication regimen Z91 .11 Active 185794625 Problem Fatigue R53.83 Active 46074198 Problem Portal hypertension K76.6 Active 05396873 Problem Essential hypertension I10 Active 01785488 Problem Esophageal varices without b leeding, unspecified esophageal varices type I85.00 Active 28807083 Problem Tobacco use disorder F17.200 Active 404983841 Problem Insomnia, unspecified type G47.00 Active 50391 2001 Problem Insulin long-term use Z79.4 Active 856328651 Problem Gastroesophageal reflux disease, esophagitis pre sence not specified K21.9 Active 560329564 Problem Depression, unspecified depression type F32.9 Active 05189022 Problem Other cirrhosis of liver K74.69 Active 2629474 7 Problem Screening mammogram, encounter for Z12.31 Activ e 28314411 Problem Tobacco use disorder Z72.0 Active 24493400 Problem Nonalcoholic steatohepatitis (KAUR) K75.81 Acti ve 457063749 Problem Anxiety state, unspecified F41.1 Active 07146 8003 Problem Cigarette nicotine dependence without complication F17.210 Active 17778767 Problem Psychophysiological insomnia F51.04 Active 425 450431 Problem Elevated LFTs R94.5 Active 730033845 Problem Other chronic pain G89.29 Active 60444728 ALLERGIES No Known Allergies ENCOUNTERS from 1950 to 2020-04-10 Encounter Location Date Provider Diagnosis [facility] Josy [address] [place] [id number] 15 Dec, 2 020 [facility] IMMUNIZATIONS Vaccine Route Administration Date Status Influenza (Denied) Unknown July 06, 2019 Others Influenza (6mo & up) Fluzone Unknown Feb 05, 2017 Oth ers SOCIAL HISTORY Tobacco Use: Social History Observation Description Date Details (start date - stop date) Current Smoker Sex Assigned At : Social History Observation Description Sex Assigned At Unknown Education: Question Answer Notes Level of Education: Finished College Audit Question Answer Notes Total Score: 1 Interpretation: Alcohol Education Language: Question Answer Notes Languages spoken: Polish [employer]: Question Answer Notes [employer] 21 [employer] Sexual Hx: Question Answer Notes Had sex in the last 12 months (vaginal, oral, or anal)? No Drug and Alcohol Question Answer Notes Total Score: 0 Interpretation: No problems reported Alcohol Screening: Question Answer Notes Did you have a drink containing alcohol in the past year? No Points 0 Interpretation Negative Tobacco Use: Question Answer Notes Are you a: current smoker Smoking Cessation Information Given 10/19/2019 Patient counseled on the dangers of tobacco use and urged to quit: 10/19/2019 How many cigarettes a day do you smoke? 6-10 Are you interested in quitting? Not ready to quit Counseled the patient on smoking effects, education provided 10/19/2019 REASON FOR REFERRAL No Information VITAL SIGNS No information MEDICATIONS Medication SIG (Take, Route, Frequency, Duration) Notes Start Da te End Date Status Pen [place] 31G X 6 MM as directed subcutaneously Daily DX E 11.65 for 30 day(s) Active Lancets -DX: E11.9 as directed - twice daily for 30 day(s) Active Propranolol HCl ER 60 MG TAKE 1 CAPSULE BY MOUTH ONCE DAILY FOR ESOPHAGEAL VARICES PORTAL HYPERTENSION Oral Active Insulin Glargine 100 UNIT/ML 35 units Subcutaneous Daily for 42 Active Atorvastatin Calcium 80 MG 1 tablet Orally Once a day 12 M 2019 Active Janumet 50-1000 MG 1 tablet with meals Orally Twice a day Active Lactulose 10 GM/15ML 15 ml Orally twice a day - Dr Diaz Not-Taking Paxil 40 mg 1 tablet in the morning Orally Once a day Active Calcium 600 + D 600-400 MG-UNIT 1 tablet Orally daily Active Blood Glucose Test - as directed In Vitro Daily Dx:E11.65 for 30 day( s) Active Blood Glucose Monitor - . _ Daily Dx: E11.65 for 30 day(s) Active Omeprazole 40 MG 1 capsule Orally Once a day before meal for 90 day(s ) Active BusPIRone HCl 10 MG 1 tablet Orally Twice a day for 30 Days Sep, Active Lisinopril 5 MG 1 tablet Orally Once a day for 90 Active Atorvastatin Calcium 40 MG 1 tablet Orally Once a day for 90 Active Drisdol 95806 UNIT 1 capsule Orally once a week with meal for 30 day(s) Jan, Active PROCEDURES No Information RESULTS No Results REASON FOR VISIT no show MEDICAL (GENERAL) HISTORY Type Description Date Medical History metabolic syndrome - Type II Diabetes Medical History hyperlipidemia Medical History depression Medical History anxiety - refused psych consult Medical History vitamin D deficiency Medical History osteopenia Medical History cirrosis of liver, portal HTN - [facility] Surgical History oophorectomy L 80 Surgical History LEEP 02 Surgical History cone 02 Surgical History refuses colonoscopy,03/15/12, 07/27/13 Surgical History Colonoscopy w/ polyps -tubular adenoma, Endoscopy - [facility] 01/31/2019 Surgical History Endoscopy 09/2019 Goals Section No Information Health Concerns No Information MEDICAL EQUIPMENT No Information MENTAL STATUS No Information FUNCTIONAL STATUS No Information ASSESSMENTS No Information PLAN OF TREATMENT Medication Medication Name Sig Start Date Stop Date Atorvastatin Calcium 80 MG 1 tablet Orally Once a day Jun, Lisinopril 5 MG 1 tablet Orally Once a day for 90 Insulin Glargine 100 UNIT/ML 35 units Subcutaneous Daily for 42 Aprumet 50-1000 MG 1 tablet with meals Orally Twice a day Drisdol 48394 UNIT 1 capsule Orally once a week with meal f or 30 day(s) Jan, BusPIRone HCl 10 MG 1 tablet Orally Twice a day for 30 Days 2019 Propranolol HCl ER 60 MG TAKE 1 CAPSULE BY MOUTH ONCE DAILY FOR ESOPHAGEAL VARICES PORTAL HYPERTENSION Oral Atorvastatin Calcium 40 MG 1 tablet Orally Once a day for 90 Paxil 40 mg 1 tablet in the morning Orally Once a day Calcium 600 + D 600-400 MG-UNIT 1 tablet Orally daily Insurance Providers Payer Name Payer Address Payer Phone Insured Name Patient Relati onship to Insured Coverage Start Date Coverage End Date MEDICARE COMPLETE [facility] [address] [address] [facility] [id number] JADE ANDERS self MEDICAID [employer] [address] [facility] [id number] JADE ANDERS self
--- OUTSIDE RECORDS SUMMARY | 2020-05-10 11:42 | CCD ---
Author Author [facility] Organization [facility] Address Unknown Phone Unavailable Care Team Providers Care Credit Products Officer Name Role Phone Nataliya Quiñones Unavailable PROBLEMS Type Condition ICD9-CM Code [id number] Code Onset Dates Condition S tatus SNOMED Code Notes Problem Patient's other noncompliance with medication regimen Z91.14 Active 269529643 Problem Vitamin D deficiency E55.9 Active 21916429 Problem Type 2 diabetes mellitus with hyperglycemia E11.65 Active 67894070 Problem Mixed hyperlipidemia E78.2 Active 900985103 Problem Anxiety state F41.1 Active 768551403 Problem Noncompliance with diet and medication regimen Z91 .11 Active 744091681 Problem Fatigue R53.83 Active 17334766 Problem Portal hypertension K76.6 Active 45308257 Problem Essential hypertension I10 Active 32229257 Problem Esophageal varices without b leeding, unspecified esophageal varices type I85.00 Active 77351822 Problem Tobacco use disorder F17.200 Active 493173159 Problem Insomnia, unspecified type G47.00 Active 78230 2001 Problem Insulin long-term use Z79.4 Active 270179374 Problem Gastroesophageal reflux disease, esophagitis pre sence not specified K21.9 Active 819888246 Problem Depression, unspecified depression type F32.9 Active 04715523 Problem Other cirrhosis of liver K74.69 Active 0945847 7 Problem Screening mammogram, encounter for Z12.31 Activ e 93815257 Problem Tobacco use disorder Z72.0 Active 26994817 Problem Nonalcoholic steatohepatitis ([place]) K75.81 Acti ve 748334771 Problem Anxiety state, unspecified F41.1 Active 58780 8003 Problem Cigarette nicotine dependence without complication F17.210 Active 85885750 Problem Psychophysiological insomnia F51.04 Active 425 562045 Problem Elevated LFTs R94.5 Active 213073854 Problem Other chronic pain G89.29 Active 70466111 ALLERGIES No Known Allergies ENCOUNTERS from 1950 to 2020-03-10 Encounter Location Date Provider Diagnosis [facility] Josy [address] [place] [id number] 15 Feb, 020 [facility] IMMUNIZATIONS Vaccine Route Administration Date Status [...] Education Language: Question Answer Notes Languages spoken: Thai Bahai: Question Answer Notes Bahai 19 Baptism Sexual Hx: Question Answer Notes Had sex [...] MEDICATIONS Medication SIG (Take, Route, Frequency, Duration) Start Date En d Date Status Pen Dennis 31G X 6 MM as directed subcutaneously Daily DX E 11.65 for 30 day(s) Active Lancets -DX: E11.9 as directed - twice daily for 30 day(s) Active Propranolol HCl ER 60 MG TAKE 1 CAPSULE BY MOUTH ONCE DAILY FOR ESOPHAGEAL VARICES PORTAL HYPERTENSION Oral Active Janumet 50-1000 MG 1 tablet with meals Orally Twice a day Active Atorvastatin Calcium 80 MG 1 tablet Orally Once a day Jun, Active Insulin Glargine 100 UNIT/ML 40 units Subcutaneous Daily Active Lactulose 10 GM/15ML 15 ml Orally twice a day - Dr Diaz Not-Taking Paxil 40 mg 1 tablet in the morning Orally Once a day Active Calcium 600 + D 600-400 MG-UNIT 1 tablet Orally daily Active Blood Glucose Test - as directed In Vitro Daily Dx:E11.65 for 30 da y(s) Active Blood Glucose Monitor - . _ Daily Dx: E11.65 for 30 day(s) Active Omeprazole 40 MG 1 capsule Orally Once a day before meal for 90 day (s) Active BusPIRone HCl 10 MG 1 tablet Orally Twice a day for 30 Days Sep, Active Lisinopril 5 MG 1 tablet Orally Once a day for 90 Active Atorvastatin Calcium 40 MG 1 tablet Orally Once a day for 90 Active Drisdol 84506 UNIT 1 capsule Orally once a week with meal f or 30 day(s) Jan, Active PROCEDURES No Information RESULTS No Results REASON FOR VISIT Lisinopril MEDICAL (GENERAL) HISTORY Type Description Date Medical History metabolic syndrome - Type II Diabetes Medical History hyperlipidemia Medical History depression Medical History anxiety - refused psych consult Medical History vitamin D deficiency Medical History osteopenia Medical History cirrosis of liver, portal HTN - Reindl Surgical History oophorectomy L 80 Surgical History [...] 1 tablet Orally Once a day for Aprume 50-1000 MG 1 tablet with meals Orally Twice a day Insulin Glargine 100 UNIT/ML 40 units Subcutaneous Daily Drisdol 75489 UNIT 1 capsule Orally once a week [...] D 600-400 MG-UNIT 1 tablet Orally daily Next Appt Details Provider Name:Nataliya Quiñones 2020-04-09 03:3 0:00 PM, [address] [place], [address], Insurance Providers Payer Name Payer Address Payer Phone Insured Name Patient Relati onship to Insured Coverage Start Date Coverage End Date MEDICARE COMPLETE [facility] [address] [address] [facility] [id number] JADE ANDERS self MEDICAID [employer] [address] [facility] [id number] JADE ANDERS self
--- OUTSIDE RECORDS SUMMARY | 2020-05-10 11:42 | CCD ---
Continuity of Care Document (CCD) Created on: 03/06/2020 Natalia Anders External Reference #: [id number] : 1950 Sex: Female Author Author Natalia CLEMENT MD Organization Unknown Address [address] [place] [address] Phone [phone] Care Team Providers Care Railroad Baggage Porter Name Role Phone Nataliya Quiñones AUTM [phone] Adeola Gutierrez AUTM [phone] Wernerio AUTM [phone] Problems Description No Active Problems Social History Type Date Description Comments Sex Unknown ETOH Use Denies alcohol use ETOH Use Never used alcohol Recreational Drug Use Denies Drug Use Tobacco Use Start: Unknown Report Cessation Counseling Was Provided Tobacco Use Start: Unknown Smokes 1/2 Pack A Day Allergies, Adverse Reactions, Alerts Description No Known Drug Allergies Medications Active Medications SIG Qnty Indications Ordering Provide r Date Xifaxan 550mg Tablets Take 1 tablet by mouth 2 times per day for impaired brain function due to liver disease 60tabs K74.69 Nader Clement MD 03/06/2020 Propranolol HCL ER 60mg Caps ER 24 HR 1 tab by mouth every day for esophageal varices/portal hypertension 30caps Nader Clement MD 01/31/2019 Ondansetron HCL 4mg Tablets 1 tab every 12 hours as needed for nausea 30tabs K74.60 Nader Clement MD 09/2018 Insulin 24 Units Once Daily Unknown Atorvastatin Calcium Tablets 1 tab by mouth every day Unknown Janumet 50-1000mg Tablets twi ce a day Unknown Paxil Tablets 1 by mouth gary Unknown Omeprazole 40mg Capsules DR 1 by mouth every day Unknown Lisinopril 5mg Tablets once a day Unknown Buspirone HCL 7.5mg Tablets 1 by mouth twice a day Unknown Immunizations Description No Information Available Vital Signs Date Vital Result Comment 03/06/2020 3:48pm BP Systolic 180 mmHg BP Diastolic 80 mmHg Height 61 inches 5'1" Weight 136.00 lb BMI (Body Mass Index) 25.7 kg/m2 [place] Body Weight 105 lb Weight 61.690 kg 05/03/2019 1:09pm BP Systolic 134 mmHg BP Diastolic 57 mmHg Height 61 inches 5'1" Weight 131.00 lb BMI (Body Mass Index) 24.7 kg/m2 [place] Body Weight 105 lb Weight 59.422 kg Results Test Acquired Date Facility Test Result H/L Range Note Laboratory test finding 09/25/2019 [facility] Main Lab [address] [id number] [phone] Bedside Glucose 187 mg/dL High 83-110 1 1 Doctor Notified Procedures Date Code Description Status 09/25/2019 45101 Endoscopy Upper GI W/Band Ligati on Of Varices Completed Medical Devices Description No Information Available Encounters Type Date Location Provider Dx Diagnosis Office Visit 03/06/2020 3:30p [facility] Nader carranza MD K74.69 Other cirrhosis of liver K75.81 Nonalcoholic steatohepatitis ([place]) I85.00 Esophageal varices without b leeding K76.6 Portal hypertension Assessments Date Code Description Provider 03/06/2020 K74.69 Other cirrhosis of liver Nader mondragon MD 03/06/2020 K75.81 Nonalcoholic steatohepatitis ([place]) Nader Clement MD 03/06/2020 I85.00 Esophageal varices without bleed andres Clement MD 03/06/2020 K76.6 Portal hypertension Nader Clement MD 09/25/2019 I85.00 Esophageal varices without bleed andres Clement MD Plan of Treatment 03/06/2020 - Nader Clement MD* K74.69 Other cirrhosis of liver * K75.81 Nonalcoholic steatohepatitis ([place]) * I85.00 Esophageal varices without bleeding * K76.6 Portal hypertension* New Medication:* Xifaxan 550 mg * New Labs:* Alpha Fetoprotein Tumor Quant, Ordered: 03/06/20 * Complete Blood Count, Ordered: 03/06/20 * Comprehensive Metabolic Profil, Ordered: 03/06/20 * Prothrombin Time/Inr, Ordered: 03/06/20 * New Xrays:* Ultrasound Liver 89176, Ordered: 03/06/20 * New Orders:* EGD w/ poss. Variceal Banding, Ordered: 03/06/20 Functional Status Description No Information Available Mental Status Description No Information Available Referrals Description No Information Available
--- OUTSIDE RECORDS SUMMARY | 2020-05-10 11:42 | CCD ---
Author Author [facility] Organization [facility] Address Unknown Phone Unavailable Care Team Providers Care Hydrotechnical Specialist Name Role Phone URBANO, KAE BURCH Unavailable Unavailable REINDL, KAE BURCH Unavailable Unavailable REINDL, KAE BURCH Unavailable Unavailable REINDL, KAE BURCH Unavailable Unavailable REINDL, KAE BURCH Unavailable Unavailable REINDL, KAE BURCH Unavailable Unavailable REINDL, KAE BURCH Unavailable Unavailable SARAHYDL, KAE BURCH Unavailable Unavailable REINCLAUDIA, KAE BURCH Unavailable Unavailable REINDL, KAE BURCH Unavailable Unavailable REINDL, KAE BURCH Unavailable Unavailable REINCLAUDIA, KAE BURCH Unavailable Unavailable REINCLAUDIA, KAE BURCH Unavailable Unavailable URBANO, KAE BURCH Unavailable Unavailable REINCLAUDIA, KAE BURCH Unavailable Unavailable REINCLAUDIA, KAE BURCH Unavailable Unavailable REINCLAUDIA, KAE BURCH Unavailable Unavailable REINCLAUDIA, KAE BURCH Unavailable Unavailable REINDL, KAE BURCH Unavailable Unavailable REINDL, KAE BURCH Unavailable Unavailable REINCLAUDIA, KAE BURCH Unavailable Unavailable REINDL, KAE BURCH Unavailable Unavailable REINDL, KAE BURCH Unavailable Unavailable REINDL, KAE BURCH Unavailable Unavailable REINDL, KAE BURCH Unavailable Unavailable REINDL, KAE BURCH Unavailable Unavailable REINDL, KAE BURCH Unavailable Unavailable REINDL, KAE BURCH Unavailable Unavailable REINDL, KAE BURCH Unavailable Unavailable REINCLAUDIA, KAE BURCH Unavailable Unavailable URBANO, KAE BURCH Unavailable Unavailable REINCLAUDIA, KAE BURCH Unavailable Unavailable REINCLAUDIA, KAE BURCH Unavailable Unavailable REINCLAUDIA, KAE BURCH Unavailable Unavailable REINCLAUDIA, KAE BURCH Unavailable Unavailable URBANO, KAE BURCH Unavailable Unavailable URBANO, KAE BURCH Unavailable Unavailable URBANO, KAE BURCH Unavailable Unavailable REINCLAUDIA, KAE BURCH Unavailable Unavailable REINCLAUDIA, KAE BURCH Unavailable Unavailable REINCLAUDIA, KAE BURCH Unavailable Unavailable REINDL, KAE BURCH Unavailable Unavailable Re-disclosure Warning The records that you are about to access may contain information from federally-assisted alcohol or drug abuse programs. If such information is present, then the following federally mandated warning applies: This information has been disclosed to you from records protected by federal confidentiality rules (42 CFR part 2). The federal rules prohibit you from making any further disclosure of this information unless further disclosure is expressly permitted by the written consent of the person to whom it pertains or as otherwise permitted by 42 CFR part 2. A general authorization for the release of medical or other information is NOT sufficient for this purpose. The Federal rules restrict any use of the information to criminally investigate or prosecute any alcohol or drug abuse patient.The records that you are about to access may contain highly sensitive health information, the redisclosure of which is protected by Article 27-F of the [facility] Public Health law. If you continue you may have access to information: Regarding HIV / AIDS; Provided by facilities licensed or operated by the [facility] Office of Mental Health; or Provided by the [facility] Office for People With Developmental Disabilities. If such information is present, then the following [facility] mandated warning applies: This information has been disclosed to you from confidential records which are protected by state law. State law prohibits you from making any further disclosure of this information without the specific written consent of the person to whom it pertains, or as otherwise permitted by law. Any unauthorized further disclosure in violation of state law may result in a fine or shelter sentence or both. A general authorization for the release of medical or other information is NOT sufficient authorization for further disc losure. Family History Family Member Name Family Member Gender Family Member Status Date o f Status Description Data Source(s) Unknown Unknown Problem MEDENT ([facility], ) Encounters Encounter Providers Location Date Indications Data Source(s ) [place] [address] [address] [place] [address] 04/09/2020 12:00:00 AM EST eCW1 ([facility]) [place] [address] [place] [address] 03/10/2020 12:00:00 AM EST eCW1 ([facility]) [place] [address] [place] [address] 03/07/2020 12:00:00 AM EST eCW1 ([facility]) Outpatient Attender: KAE Fischer/Billy/Adal/Sarahy carranza 03/06/2020 02:30:00 PM EST MEDENT ([facility] [address] [facility] [address] 10/19/2019 12:00:00 AM EDT eCW1 ([facility]) Unknown [address] [facility] [address] 08/01/2019 12:00:00 AM EDT eCW1 ([facility]) Unknown [address] [facility] [address] 07/31/2019 12:00:00 AM EDT eCW1 ([facility]) Outpatient 07/11/2019 11:10:00 AM EDT [facility] [address] [place] [address], [place] [address] 07/06/2019 12:00:00 AM EDT eCW1 ([facility]) [facility] [address] [facility] [address] 06/07/2019 12:00:00 AM EST eCW1 ([facility]) [facility] [address] [place] [address] 05/30/2019 12:00:00 AM EST eCW1 ([facility]) [facility] [address] [place] [address], [place] [address] 05/29/2019 12:00:00 AM EST eCW1 ([facility]) Outpatient Attender: KAE Fischer/Billy/Adal/Sarahy dl 05/03/2019 12:00:00 PM EST MEDENT ([facility]) [facility] [address] [facility] [address] 04/11/2019 12:00:00 AM EST eCW1 ([facility]) [address] [address] 04/06/2019 12:00:00 AM EST eCW1 [facility] [place] [address] 03/30/2019 12:00:00 AM EST eCW1 ([facility]) [facility] Deena [facility] [address] 03/29/2019 12:00:00 AM EST eCW1 ([facility]) [facility] Deena [facility] [address] 2019 12:00:00 AM EST eCW1 ([facility]) Immunizations Vaccine Date Status Description Data Source(s) IIV3. This is one of two codes replacing CVX 15, which is being retired. 07/06/2019 02:50:00 PM EDT completed eCW1 ([facility]) IIV3. This is one of two codes replacing CVX 15, which is being retired. 07/06/2019 02:50:00 PM EDT completed eCW1 ([facility]) IIV3. This is one of two codes replacing CVX 15, which is being retired. 07/06/2019 02:50:00 PM EDT completed eCW1 ([facility]) Medications Medication Brand Name Start Date Product Form Dose Route Admi nistrative Instructions Pharmacy Instructions Status Indications Reaction Description Data Source(s) rifaximin 550 MG Oral Tablet [XIFAXAN] Xifaxan 03/06/2020 12:00:00 AM EST ORAL active MEDENT ([facility]) buspirone hydrochloride 10 MG Oral Tablet BusPIRone HC l 10 MG BusPIRone HCl 10 MG 10/19/2019 12:00:00 AM EDT 1.0 {tablet} activ e BusPIRone HCl 10 MG eCW1 ([facility]) buspirone hydrochloride 10 MG Oral Tablet BusPIRone HC l 10 MG BusPIRone HCl 10 MG 10/19/2019 12:00:00 AM EDT 1.0 {tablet} activ e BusPIRone HCl 10 MG eCW1 ([facility]) buspirone hydrochloride 10 MG Oral Tablet BusPIRone HC l 10 MG BusPIRone HCl 10 MG 10/19/2019 12:00:00 AM EDT 1.0 {tablet} activ e BusPIRone HCl 10 MG eCW1 ([facility]) atorvastatin 80 MG Oral Tablet Atorvastatin Calcium 80 MG Atorvastatin Calcium 80 MG 07/06/2019 12:00:00 AM EDT 1.0 {tablet} activ e Atorvastatin Calcium 80 MG eCW1 ([facility]) atorvastatin 80 MG Oral Tablet Atorvastatin Calcium 80 MG Atorvastatin Calcium 80 MG 07/06/2019 12:00:00 AM EDT 1.0 {tablet} activ e Atorvastatin Calcium 80 MG eCW1 ([facility]) atorvastatin 80 MG Oral Tablet Atorvastatin Calcium 80 MG Atorvastatin Calcium 80 MG 07/06/2019 12:00:00 AM EDT 1.0 {tablet} activ e Atorvastatin Calcium 80 MG eCW1 ([facility]) atorvastatin 80 MG Oral Tablet Atorvastatin Calcium 80 MG Atorvastatin Calcium 80 MG 07/06/2019 12:00:00 AM EDT 1.0 {tablet} activ e Atorvastatin Calcium 80 MG eCW1 ([facility]) atorvastatin 80 MG Oral Tablet Atorvastatin Calcium 80 MG Atorvastatin Calcium 80 MG 07/06/2019 12:00:00 AM EDT active 1 tablet eCW1 ([facility]) Lactulose 667 MG/ML Oral Solution Lactulose 05/03/2019 12:00:00 AM EST ORAL active MEDENT ([facility], ) magnesium citrate 58.2 MG/ML Oral Solution Magnesium Citrate 11/29/2018 12:00:00 AM EDT completed MEDENT ([facility], ) Insurance Providers Payer name Policy type / Coverage type Policy ID Covered alliance party ID Covered alliance party's relationship to sheraer Policy Shearer Plan Information JUAN MIGUELEDNY [id number] SP [id number] MEDICARE COMPLETE [id number] SP [id number] MEDICARE COMPLETE [id number] SP [id number] MEDICARE COMPLETE [id number] SP [id number] MEDICARE [id number] SP [id number] A MEDICAID [id number] SP [id number] MEDICAID M [id number] S [id number] MEDICARE COMPLE[place] [id number] S [id number] ANSI-Medicaid [id number] ANSI-Medicare Part B [id number] Unitedhealthcare Medicare Commercial [id number] Self [id number] MEDICAID [id number] SP [id number] MEDICARE COMPLETE [id number] SP [id number] ANSI-Medicare Part B [id number] ANSI-Medicaid [id number] ANSI-Medicare Part B [id number] ANSI-Medicaid [id number] ANSI-Medicaid [id number] ANSI-Medicare Part B [id number] ANSI-Medicare Part B [id number] ANSI-Medicaid [id number] [facility]-Medicare Part B [id number] [facility] [id number] [facility]-Medicaid [id number] ANSI-Medicare Part B [id number] Unitedhealthcare Medicare Commercial [id number] Self [id number] [facility]-Medicaid [id number] [facility]-Medicare Part B [id number] ANSI-Medicare Part B [id number] [facility]-Medicaid [id number] MEDICARE COMPLETE [id number] SP [id number] MEDICARE COMPLETE UNAVAILABLE SP UNAVAILABLE MEDICARE [id number] SP [id number] A [id number] A Problems, Conditions, and Diagnoses Code Display Name Description Problem Type Effective Dates Data Source(s) K75.81 [id number] Nonalcoholic steatohepatitis ([facility]) Probl em 03/07/2020 12:00:00 AM EST eCW1 ([facility]) K74.69 [id number] Other cirrhosis of liver Problem 03/07/2020 12:00:00 AM EST eCW1 ([facility]) I85.00 [id number] Esophageal varices w ithout bleeding, unspecified esophageal varices type Problem 03/07/2020 12:00:00 AM EST eCW1 ([facility]) K76.6 [id number] Portal hypertension Problem 03/07/2020 12:00 :00 AM EST eCW1 ([facility]) Z12.31 mammogram - screening Screening mammogram, encounter f or Problem 10/19/2019 12:00:00 AM EDT eCW1 ([facility]) K74.60 [id number] Hepatic cirrhosis, u nspecified hepatic cirrhosis type, unspecified whether ascites present Problem 2019 12:00:[address] eCW1 ([facility]) K74.60 [id number] Hepatic cirrhosis, u nspecified hepatic cirrhosis type, unspecified whether ascites present Problem 2019 12:00:[address] eCW1 ([facility]) Surgeries/Procedures Procedure Description Date Indications Data Source(s) Endoscopy Upper GI W/Band Ligation Of Varices 09/25/19 20 12:00:00 AM EDT MEDVENU ([facility]) Annual wellness visit, includes a person alized prevention plan of service (pps), subsequent visit 07/06/2019 12:00:00 AM EDT eCW 1 ([facility]) Office Visit, Est Pt., Level 3 PC 07/06/2019 12:00:00 AM EDT eCW1 ([facility]) Office Visit, Est Pt., Level 2 FC 2019 12:00:00 AM EST eCW1 ([facility]) Office Visit, Est Pt., Level 4 PC 2019 12:00:00 AM EST eCW1 ([facility]) Influenza immunization was not administe red for reasons documented by clinician (e.g., patient allergy or other medical reasons, patient declined or other patient reasons, vaccine not available or other system reasons) 2019 12:00:00 AM EST eCW1 ([facility]) Results ID Date Data Source [id number] 05/05/2020 10:00:00 AM EST [facility] Name Value Range Interpretation Code Description Data Mayela rce(s) Supporting Document(s) SARS coronavirus [address] [facility] [place] This lab was ordered by [facility] and reported by [facility]. ID Date Data Source [id number] 09/25/2019 01:24:00 PM EDT [facility] Name Value Range Interpretation Code Description Data Mayela rce(s) Supporting Document(s) Glucose [Mass/volume] in Capillary blood by Glucometer 187 mg/dL 83-110 Above high normal [facility] Doctor Notified ID Date Data Source [id number] 09/22/2019 12:00:00 AM EDT [facility] Name Value Range Interpretation Code Description Data Mayela rce(s) Supporting Document(s) SARS CORONAVIRUS 2 RNA [facility] This lab was ordered by [facility] and reported by [facility]. ID Date Data Source [id number] 05/03/2019 02:10:00 PM EST [facility] Name Value Range Interpretation Code Description Data Mayela rce(s) Supporting Document(s) Htrgf-2-Ydfrqhlykol [Mass/volume] in Serum or Plasma 4.9 ng/mL Normal (applies to non-numeric results) [facility] THE AFP ASSAY IS PERFORMED ON THE [employer] BY CHEMILUMINESCENCE AND SHOULD NOT BE COMPARED INTERCHANGEABLY WITH OTHER METHODS. IT SHOULD NOT BE USED ALONE A SCREENING TEST OR DIAGNOSIS FOR THE PRESENCE OR ABSENCE OF MALIGNANT DISEASE. THESE RESULTS ARE NOT INTERPRETABLE IN FEMALES. PREDICTIONS OF DISEASE RECURRENCE SHOULD NOT BE BASED SOLELY ON VALUES OBTAINED FROM SERIAL PATIENT SERUM VALUES. ID Date Data Source [id number] 05/03/2019 02:10:00 PM EST [facility] Name Value Range Interpretation Code Description Data Mayela rce(s) Supporting Document(s) Prothrombin Time 13.2 s 11.8-14.0 Normal (applies to non-numeric results) [facility]) Inr 1.03 Normal (applies to non-numeric resul ts) [facility]) THERAPUTIC HUMAN INR VALUES INDICATIONS NORMAL RANGES PROPHYLAXIS/TREATMENT OF: VENOUS THROMBOSIS 2.0-3.0 PULMONARY EMBOLISM 2.0-3.0 PREVENTION OF SYSTEMIC EMBOLISM FROM: TISSUE HEART VALVES 2.0-3.0 ACUTE MYOCARDIAL INFARCTION 2.0-3.0 VALVULAR HEART DISEASE 2.0-3.0 ATRIAL FIBRILLATION 2.0-3.0 MECHANICAL VALVES(HIGH RISK) 2.5-3.5 RECURRENT MYOCARDIAL INFARCTION 2.5-3.5 ID Date Data Source [id number] 05/03/2019 02:10:00 PM EST [facility] ([facility]) Name Value Range Interpretation Code Description Data Mayela rce(s) Supporting Document(s) Ast/Sgot 22 U/L 7-37 Normal (applies to non-numeric resul ts) [facility]) Alt/SGPT 38 U/L 12-78 Normal (applies to non-numeric resul ts) [facility]) Bilirubin,Total 0.5 mg/dL 0.2-1.0 Normal (applies to non-numeric results) [facility]) Alkaline Phosphatase 116 U/L 45-117 Normal (applies to non-num louise results) [facility]) Total Protein 7.4 GM/DL 6.4-8.2 Normal (applies to non-numeric re sults) [facility]) Bilirubin,Direct Laboratory test result 0.0-0.2 Normal ( applies to non-numeric results) [facility]) Albumin 4.0 GM/DL 3.2-5.2 Normal (applies to non-numeric resul ts) [facility]) Albumin/Globulin Ratio 1.18 1.00-1.93 Normal (applies to non-numeric results) [facility]) Procedure Social History Code Duration Value Status Description Data Source(s ) Smoking 10/19/2019 12:00:00 AM EDT Current Smoker completed Curre nt Smoker eCW1 ([facility]) Smoking 10/19/2019 12:00:00 AM EDT Current Smoker completed Curre nt Smoker eCW1 ([facility]) Smoking 10/19/2019 12:00:00 AM EDT Current Smoker completed Curre nt Smoker eCW1 ([facility]) Vital Signs ID Date Data Source UNK Name Value Range Interpretation Code Description Data Source(s) Body weight 61.690 kg 61.690 kg [facility] ([facility]) [place] body weight 105 [lb_av] 105 [lb_av] [facility] T ([facility]) Body mass index (BMI) [Ratio] 25.7 kg/m2 25.7 k g/m2 [facility] Body weight 136.00 [lb_av] 136.00 [lb_av] [facility] T ([facility]) Body height 61 [in_i] 61 [in_i] [facility] ([facility]) 5'1" Diastolic blood pressure 80 mm[Hg] 80 mm[Hg] [facility] ([facility]) Systolic blood pressure 180 mm[Hg] 180 mm[Hg] [facility] Diastolic blood pressure 70 mm[Hg] 70 mm[Hg] eCW1 ([facility]) Systolic blood pressure 102 mm[Hg] 102 mm[Hg] e CW1 ([facility]) Body temperature 97.0 [degF] 97.0 [degF] eCW1 ( [facility]) Respiratory rate 18 /min 18 /min eCW1 ([facility]) Heart rate 70 /min 70 /min eCW1 ([facility]) Body mass index (BMI) [Ratio] 25.32 kg/m2 25.32 kg/m2 W1 ([facility]) Body height 61 [in_us] 61 [in_us] eCW1 ([facility]) Body weight Measured 134.0 [lb_av] 134.0 [lb_av ] eCW1 ([facility]) Systolic blood pressure 134 mm[Hg] 134 mm[Hg] M EDENT ([facility]) Body weight 59.422 kg 59.422 kg [facility] [place] body weight 105 [lb_av] 105 [lb_av] [facility] Body mass index (BMI) [Ratio] 24.7 kg/m2 24.7 k g/m2 MEDENT ([facility]) Body weight 131.00 [lb_av] 131.00 [lb_av] MEDEN T ([facility]) Body height 61 [in_i] 61 [in_i] [facility] 5'1" Diastolic blood pressure 57 mm[Hg] 57 mm[Hg] [facility] Diastolic blood pressure 50 mm[Hg] 50 mm[Hg] eCW1 ([facility]) Systolic blood pressure 116 mm[Hg] 116 mm[Hg] e CW1 ([facility]) Body temperature 98.4 [degF] 98.4 [degF] eCW1 ( [facility]) Respiratory rate 18 /min 18 /min eCW1 ([facility]) Heart rate 77 /min 77 /min eCW1 ([facility]) Body mass index (BMI) [Ratio] 25.85 kg/m2 25.85 kg/m2 eCW1 ([facility]) Body height 61 [in_us] 61 [in_us] eCW1 ([facility]) Body weight Measured 136.8 [lb_av] 136.8 [lb_av ] eCW1 ([facility]) Patient Treatment Plan of Care Planned Activity Planned Date Details Description Data Source (s) buspirone hydrochloride 10 MG Oral Tablet 10/19/2019 12:00:00 AM ED T eCW1 ([facility]) buspirone hydrochloride 10 MG Oral Tablet 10/19/2019 12:00:00 AM ED T eCW1 ([facility]) buspirone hydrochloride 10 MG Oral Tablet 10/19/2019 12:00:00 AM ED T eCW1 ([facility]) atorvastatin 80 MG Oral Tablet 07/06/2019 12:00:00 AM EDT eCW1 ([facility]) atorvastatin 80 MG Oral Tablet 07/06/2019 12:00:00 AM EDT eCW1 ([facility]) atorvastatin 80 MG Oral Tablet 07/06/2019 12:00:00 AM EDT eCW1 ([facility]) atorvastatin 80 MG Oral Tablet 07/06/2019 12:00:00 AM EDT eCW1 ([facility]) atorvastatin 80 MG Oral Tablet 07/06/2019 12:00:00 AM EDT eCW1 ([facility])
--- OUTSIDE RECORDS SUMMARY | 2020-05-10 11:42 | CCD ---
Author Author [facility] Organization [facility] Address Unknown Phone Unavailable Care Team Providers Care Digital Forensic Analyst Name Role Phone Nataliya Quiñones Unavailable PROBLEMS Type Condition ICD9-CM Code YNG22-OA Code Onset Dates Condition S tatus SNOMED Code Notes Problem Patient's other noncompliance with medication regimen Z91.14 Active 793795286 Problem Vitamin D deficiency E55.9 Active 43638179 Problem Type 2 diabetes mellitus with hyperglycemia E11.65 Active 76025530 Problem Mixed hyperlipidemia E78.2 Active 080539094 Problem Anxiety state F41.1 Active 251977150 Problem Noncompliance with diet and medication regimen Z91 .11 Active 498544195 Problem Fatigue R53.83 Active 07390926 Problem Portal hypertension K76.6 Active 40727905 Problem Essential hypertension I10 Active 87386973 Problem Esophageal varices without b leeding, unspecified esophageal varices type I85.00 Active 22360567 Problem Tobacco use disorder F17.200 Active 745507896 Problem Insomnia, unspecified type G47.00 Active 57783 2001 Problem Insulin long-term use Z79.4 Active 933599243 Problem Gastroesophageal reflux disease, esophagitis pre sence not specified K21.9 Active 841124371 Problem Depression, unspecified depression type F32.9 Active 45384822 Problem Other cirrhosis of liver K74.69 Active 3458271 7 Problem Screening mammogram, encounter for Z12.31 Activ e 81500852 Problem Tobacco use disorder Z72.0 Active 50277140 Problem Nonalcoholic steatohepatitis (KAUR) K75.81 Acti ve 423005136 Problem Anxiety state, unspecified F41.1 Active 81654 8003 Problem Cigarette nicotine dependence without complication F17.210 Active 71326301 Problem Psychophysiological insomnia F51.04 Active 425 798924 Problem Elevated LFTs R94.5 Active 002206299 Problem Other chronic pain G89.29 Active 56914629 ALLERGIES No Known Allergies ENCOUNTERS from 1950 to 2020-03-07 Encounter Location Date Provider Diagnosis [facility] Josy [address] [place] [id number] 12 Feb, 020 Nataliya [place] Type 2 diabetes mellitus with hyperglycemia E11.65 and Essential hypertension I10 IMMUNIZATIONS Vaccine Route Administration Date Status Influenza [...] Education Language: Question Answer Notes Languages spoken: Occitan Oriental Orthodox: Question Answer Notes Oriental Orthodox 21 Spiritism Sexual Hx: Question Answer Notes Had sex [...] Start Date En d Date Status Pen [place] 31G X 6 MM as directed subcutaneously Daily DX E 11.65 for 30 day(s) Active Lancets -DX: E11.9 as directed - twice daily for 30 day(s) Active Calcium 600 + D 600-400 MG-UNIT 1 tablet Orally daily Active Blood Glucose Test - as directed In Vitro Daily Dx:E11.65 for 30 da y(s) Active Insulin Glargine 100 UNIT/ML 40 units Subcutaneous Daily Active Janumet 50-1000 MG 1 tablet with meals Orally Twice a day Active Atorvastatin Calcium 80 MG 1 tablet Orally Once a day Jun, Active BusPIRone HCl 10 MG 1 tablet Orally Twice a day for 30 Days Sep, Active Paxil 40 mg 1 tablet in the morning Orally Once a day Active Atorvastatin Calcium 40 MG 1 tablet Orally Once a day for 90 Active Blood Glucose Monitor - . _ Daily Dx: E11.65 for 30 day(s) Active Propranolol HCl ER 60 MG TAKE 1 CAPSULE BY MOUTH ONCE DAILY FOR ESOPHAGEAL VARICES PORTAL HYPERTENSION Oral Active Lisinopril 5 MG 1 tablet Orally Once a day for 90 Active Lactulose 10 GM/15ML 15 ml Orally twice a day - Dr Reintere Not-Taking Omeprazole 40 MG 1 capsule Orally Once a day before meal for 90 day (s) Active Drisdol 39419 UNIT 1 capsule Orally once a week with meal f or 30 day(s) Jan, Active PROCEDURES No Information RESULTS No Results REASON FOR VISIT needs appt and labs MEDICAL (GENERAL) HISTORY Type Description Date Medical [...] No Information FUNCTIONAL STATUS No Information ASSESSMENTS Encounter Date Diagnosis Notes Feb, Type 2 diabetes mellitus with hyperglyce kesha (ICD-10 - E11.65) Feb, Essential hypertension (ICD-10 - I10) PLAN OF TREATMENT Medication Medication Name Sig Start Date Stop Date Insulin Glargine 100 UNIT/ML 40 units Subcutaneous Daily Atorvastatin Calcium 80 MG 1 tablet Orally Once a day Jun, Atorvastatin Calcium 40 MG 1 tablet Orally Once a day for Janumet 50-1000 MG 1 tablet with meals Orally Twice a day Drisdol 88726 UNIT 1 capsule Orally once a week with meal f or 30 day(s) Jan, Lisinopril 5 MG 1 tablet Orally Once a day for 90 Calcium 600 + D 600-400 MG-UNIT 1 tablet Orally daily Propranolol HCl ER 60 MG TAKE 1 CAPSULE BY MOUTH ONCE DAILY FOR ESOPHAGEAL VARICES PORTAL HYPERTENSION Oral BusPIRone HCl 10 MG 1 tablet Orally Twice a day for 30 Days 25 J un, 2020 Paxil 40 mg 1 tablet in the morning Orally Once a day Future Test Test Name Order Date Comprehensive Metabolic Profile (CMP) 20200308 HEMOGLOBIN A1c 20200308 MICROALBUMIN RANDOM 20200308 Next Appt Details Provider Name:Nataliya Quiñones, 2020-04-09 03:3 0:00 PM, [address] [place], [id number], Insurance Providers Payer Name Payer Address Payer Phone Insured Name Patient Relati onship to Insured Coverage Start Date Coverage End Date MEDICAID Project Playlist [address] [facility] [id number] [phone] JADE ANDERS self MEDICARE COMPLETE [employer] [address] [address] [facility] [id number] JADE ANDERS self
[2020-05-10] MEDS ORDERED: GLYCOPYRROLATE INJ 0.2 MG/ML 2 ML VIAL As Ordered ONE (12:32)
[2020-05-10] MEDS ORDERED: propofoL 200 MG/20 ML VIAL As Ordered ONE (12:32)
[2020-05-10] MEDS ORDERED: LIDOCAINE 2% 100MG/5ML SDV (FOR ANES.) As Ordered ONE (12:32)
[2020-05-10] MEDS ORDERED: fentaNYL 100 MCG/2 ML INJECTION (J3010) As Ordered ONE (12:33)
--- NOTE | 2020-05-10 13:51 | ROOR ---
Patient Name: Natalia Anders Procedure Date: 05/10/2020 1:28 PM Date of : 1950 Age: 70 Room: [facility] Gender: Female Note Status: Finalized Procedure: Upper GI endoscopy Indications: Cirrhosis rule out esophageal varices, Follow-up of esophageal varices Providers: Nader DIAZ MD Referring MD: Nataliya Quiñones NP Requesting Provider: Medicines: Monitored Anesthesia Care Complications: No immediate complications. Procedure: Pre-Anesthesia Assessment: - The heart rate, respiratory rate, oxygen saturations, blood pressure, adequacy of pulmonary ventilation, and response to care were monitored throughout the procedure. The Endoscope was introduced through the mouth, and advanced to the second part of duodenum. The upper GI endoscopy was accomplished without difficulty. The patient tolerated the procedure well. Findings: Grade I varices, and one grade II varix were found in the lower third of the esophagus. Primary prevention indicated. Two bands were successfully placed with complete eradication, resulting in deflation of varices. There was no bleeding during the maneuver. The exam was otherwise without abnormality. Impression: - Grade I and grade II esophageal varices. Completely eradicated. Banded. - The examination was otherwise normal. - No specimens collected. Recommendation: - Observe patient's clinical course. - Start/continue a Non-selective Beta Jl such as Propranolol or Nadolol, titrate to heart rate. - Continue present medications. Procedure Code(s): --- Professional --- 75713, Esophagogastroduodenoscopy, flexible, transoral; with band ligation of esophageal/gastric varices Diagnosis Code(s): --- Professional --- K74.60, Unspecified cirrhosis of liver I85.10, Secondary esophageal varices without bleeding CPT copyright 2019 [employer]. All rights reserved. The codes documented in this report are preliminary and upon loan secretary review may be revised to meet current compliance requirements. Nader Diaz MD Nader DIAZ MD 05/10/2020 1:50:35 PM Electronically signed by Nader DIAZ MD Number of Addenda: 0 Note Initiated On: 05/10/2020 1:28 PM Estimated Blood Loss: Estimated blood loss: none.
[2020-05-10 14:15] VITALS: BP 145/73
== END 2020-05-10 14:17 | disposition home or self-care (01) ==
LOC: M OPP 11:38
PROVIDERS: ATTEND Internal Medicine Gastroenterology
DX: K74.60 Unspecified cirrhosis of liver (principal); I85.10 Secondary esophageal varices without bleeding; I10 Essential (primary) hypertension; E78.5 Hyperlipidemia, unspecified; E11.9 Type 2 diabetes mellitus without complications; R12 Heartburn; F41.9 Anxiety disorder, unspecified; G47.00 Insomnia, unspecified; F17.210 Nicotine dependence, cigarettes, uncomplicated; Z79.4 Long term (current) use of insulin; Z79.899 Other long term (current) drug therapy; Z82.49 Family history of ischemic heart disease and other diseases of the circulatory system; Z83.3 Family history of diabetes mellitus
CPT/HCPCS: 43244; J3010

== ENCOUNTER → 2020-05-24 | Outpatient (CLI) | payer MEDICARE, MEDICAID ==
[~2020-05-24] MED LIST changes: -NS 1,000 ML IV ONE
--- NOTE | 2020-05-24 09:06 | REP ---
INDICATION: CIRRHOSIS COMPARISON: 07/03/2019 TECHNIQUE: Real time ramirez scale ultrasound examination using curved array transducer. FINDINGS: Liver measures 19 cm in craniocaudal length and demonstrates coarsened echotexture consistent with cirrhosis. No focal hepatic lesion identified. Pancreas is incompletely evaluated due to interposed bowel gas. The gallbladder demonstrates small amount of layering sludge without wall thickening, or pericholecystic fluid. No biliary ductal dilatation is appreciated and the common bile duct measures 6.0 mm diameter. Right kidney is normal in reniform shape without hydronephrosis and measures 12.1 x 5.2 x 5.2 cm. No ascites in the visualized right upper quadrant. Abdominal aorta incompletely evaluated due to interposed bowel gas but visualized portions appear normal and measures 2 cm maximal diameter. IMPRESSION: Hepatocellular disease consistent with cirrhosis. Gallbladder sludge without acute cholecystitis. <Electronically signed by Walter Baird > 05/24/20 0914
== END ==
LOC: M RAD 08:04
PROVIDERS: ATTEND Internal Medicine Gastroenterology
DX: K74.69 Other cirrhosis of liver (principal); K82.8 Other specified diseases of gallbladder

== ENCOUNTER → 2020-06-04 | Outpatient (REF) | payer MEDICARE, MEDICAID ==
[~2020-06-04] MED LIST changes: -LISI-542 PO; +LISI-898 PO
[2020-06-04 15:00] LABS: ALBUMIN 3.9 GM/DL (3.2-5.2); ALT/SGPT 20 U/L (12-78); BILIRUBIN,TOTAL 0.3 MG/DL (0.2-1.0); BLOOD UREA NITROGEN 13 MG/DL (7-18); CALCIUM LEVEL 9.5 MG/DL (8.8-10.2); CARBON DIOXIDE LEVEL 30 MEQ/L (21-32); CHLORIDE LEVEL 104 MEQ/L (98-107); CHOLESTEROL LEVEL 184 MG/DL (<200); CHOLESTEROL RISK RATIO 3.118 (<5); CREATININE FOR GFR 0.75 MG/DL (0.55-1.30); GLOMERULAR FILTRATION RATE > 60.0 (>39); GLUCOSE, FASTING 193 MG/DL (70-100); HDL CHOLESTEROL 59 MG/DL (>40); LDL CHOLESTEROL 104 MG/DL (<100); NON-HDL-C 125 MG/DL; POTASSIUM SERUM 4.1 MEQ/L (3.5-5.1); SODIUM LEVEL 140 MEQ/L (136-145); TOTAL PROTEIN 7.1 GM/DL (6.4-8.2); TRIGLYCERIDES LEVEL 107 MG/DL (<150)
[2020-06-04 15:28] LABS: MAU/CREAT RATIO 128.7 MCG/MG (0.0-30.0)
[2020-06-04 15:36] LABS: TOTAL 25(OH) VITAMIN D 18.6 NG/ML (30.0-100.0)
[2020-06-04 15:43] LABS: HEMOGLOBIN A1c 9.4 %
== END ==
LOC: M SFHCPLAZ 09:42
PROVIDERS: ATTEND Nurse Practitioner Family
DX: E55.9 Vitamin D deficiency, unspecified (principal); E78.2 Mixed hyperlipidemia; E11.65 Type 2 diabetes mellitus with hyperglycemia; F17.210 Nicotine dependence, cigarettes, uncomplicated
CPT/HCPCS: 36415; 80053; 80061; 82043; 82306; 83036; 99406; G0463

== ENCOUNTER → 2020-09-11 | Outpatient (REF) | payer MEDICARE, MEDICAID ==
[2020-09-11 10:58] LABS: ALBUMIN 3.8 GM/DL (3.2-5.2); ALT/SGPT 40 U/L (12-78); BILIRUBIN,TOTAL 0.3 MG/DL (0.2-1.0); BLOOD UREA NITROGEN 11 MG/DL (7-18); CALCIUM LEVEL 9.8 MG/DL (8.8-10.2); CARBON DIOXIDE LEVEL 29 MEQ/L (21-32); CHLORIDE LEVEL 107 MEQ/L (98-107); CHOLESTEROL LEVEL 174 MG/DL (<200); CHOLESTEROL RISK RATIO 2.761 (<5); CREATININE FOR GFR 0.58 MG/DL (0.55-1.30); GLOMERULAR FILTRATION RATE > 60.0 (>39); GLUCOSE, FASTING 153 MG/DL (70-100); HDL CHOLESTEROL 63 MG/DL (>40); LDL CHOLESTEROL 87 MG/DL (<100); NON-HDL-C 111 MG/DL; SODIUM LEVEL 142 MEQ/L (136-145); TOTAL PROTEIN 6.9 GM/DL (6.4-8.2); TRIGLYCERIDES LEVEL 122 MG/DL (<150)
[2020-09-11 11:05] LABS: TOTAL 25(OH) VITAMIN D 13.5 NG/ML (30.0-100.0)
[2020-09-11 11:30] LABS: HEMOGLOBIN A1c 9.8 %
== END ==
LOC: M PLALAB 08:09
PROVIDERS: ATTEND Nurse Practitioner Family
DX: E11.65 Type 2 diabetes mellitus with hyperglycemia (principal); E78.2 Mixed hyperlipidemia; E55.9 Vitamin D deficiency, unspecified

== ENCOUNTER 2020-10-30 14:15 | Emergency (ER) | payer MEDICARE, MEDICAID ==
[~2020-10-30] VITALS: Ht 154.9 cm; Wt 63.6 kg
[~2020-10-30 14:15] MED LIST changes: +OMEP40CA4 PO; -OMEP40CA97 PO
[2020-10-30 14:16] VITALS: BP 131/61
[2020-10-31] MEDS ORDERED: DOXY1CAP62 PO (09:23)
== END 2020-10-30 15:18 | disposition left against medical advice (07) ==
LOC: M ED 14:15
DX: Z53.21 Procedure and treatment not carried out due to patient leaving prior to being seen by health care provider (principal)

== ENCOUNTER 2020-10-31 06:07 | Emergency (ER) | payer MEDICARE, MEDICAID ==
[~2020-10-31] VITALS: Ht 154.9 cm; Wt 63.4 kg
[~2020-10-31 06:07] MED LIST changes: -DOXY1CAP62 PO; -LISI-898 PO; +LISI5TAB11 PO; -OMEP-221 PO; +OMEP40CA5 PO
[2020-10-31 06:08] VITALS: BP 148/67
[2020-10-31] MEDS ORDERED: IBUPROFEN 800 MG TAB PO ONE (07:00)
[2020-10-31 07:44] LABS: BASO # 0.1 10^3/uL (0.0-0.2); BASO % 0.5 % (0.0-1.0); EOS # 0.3 10^3/uL (0.0-0.5); EOS % 2.8 % (0.0-3.0); HEMATOCRIT 43.7 % (36.0-47.0); HEMOGLOBIN 14.3 g/dl (12.0-15.5); LYMPH # 2.6 10^3/uL (1.5-5.0); LYMPH % 24.9 % (24.0-44.0); MEAN CORPUSCULAR HEMOGLOBIN 29.2 pg (27.0-33.0); MEAN CORPUSCULAR HGB CONC 32.7 g/dl (32.0-36.5); MEAN CORPUSCULAR VOLUME 89.2 fl (80.0-96.0); MONO % 9.1 % (2.0-8.0); NEUTROPHILS # 6.5 10^3/uL (1.5-8.5); NEUTROPHILS % 62.4 % (36.0-66.0); PLATELET COUNT, AUTOMATED 146 10^3/uL (150-450); WHITE BLOOD COUNT 10.5 10^3/uL (4.0-10.0)
[2020-10-31 08:04] LABS: ERYTHROCYTE SEDIMENTATION RATE 51 mm/hr (0-30)
[2020-10-31 08:06] LABS: BLOOD UREA NITROGEN 30 MG/DL (7-18); C REACTIVE PROTEIN QUANTITATIV 2.25 MG/DL (0.00-0.30); CALCIUM LEVEL 8.9 MG/DL (8.8-10.2); CARBON DIOXIDE LEVEL 27 MEQ/L (21-32); CHLORIDE LEVEL 104 MEQ/L (98-107); CREATININE FOR GFR 0.94 MG/DL (0.55-1.30); GLOMERULAR FILTRATION RATE > 60.0 (>39); GLUCOSE, FASTING 232 MG/DL (70-100); POTASSIUM SERUM 4.1 MEQ/L (3.5-5.1); SODIUM LEVEL 136 MEQ/L (136-145)
[2020-10-31] MEDS ORDERED: DOXYCYCLINE HYCLATE 100MG TABLET PO ONE (09:10)
[2020-10-31] MEDS ORDERED: DOXY-443 PO (09:23)
== END 2020-10-31 09:45 | disposition home or self-care (01) ==
LOC: M ED 06:07
DX: L02.214 Cutaneous abscess of groin (principal); L03.311 Cellulitis of abdominal wall; E11.40 Type 2 diabetes mellitus with diabetic neuropathy, unspecified; I10 Essential (primary) hypertension; E55.9 Vitamin D deficiency, unspecified; F33.9 Major depressive disorder, recurrent, unspecified; F41.9 Anxiety disorder, unspecified; H35.30 Unspecified macular degeneration; K74.69 Other cirrhosis of liver; M85.9 Disorder of bone density and structure, unspecified; Z79.899 Other long term (current) drug therapy; Z79.4 Long term (current) use of insulin; F17.210 Nicotine dependence, cigarettes, uncomplicated

== ENCOUNTER → 2020-10-31 | Outpatient (REF) | payer MEDICARE, MEDICAID ==
[~2020-10-31] MED LIST changes: +DOXY1CAP62 PO
== END ==
LOC: M LAB REF 16:20
PROVIDERS: ATTEND Surgery
DX: L02.214 Cutaneous abscess of groin (principal)

== ENCOUNTER → 2020-12-12 | Outpatient (CLI) | payer MEDICARE, MEDICAID ==
[~2020-12-12] MED LIST changes: +DOXY1CAP62 PO; +LISI-898 PO; -LISI5TAB11 PO; +OMEP-221 PO; -OMEP40CA5 PO
[2020-12-12 16:07] LABS: HEMOGLOBIN A1c 7.9 %
[2020-12-12 16:16] LABS: ALBUMIN 3.5 GM/DL (3.2-5.2); ALT/SGPT 30 U/L (12-78); BILIRUBIN,TOTAL 0.5 MG/DL (0.2-1.0); BLOOD UREA NITROGEN 11 MG/DL (7-18); CALCIUM LEVEL 9.1 MG/DL (8.8-10.2); CARBON DIOXIDE LEVEL 30 MEQ/L (21-32); CHLORIDE LEVEL 110 MEQ/L (98-107); CREATININE FOR GFR 0.61 MG/DL (0.55-1.30); GLOMERULAR FILTRATION RATE > 60.0 (>39); GLUCOSE, FASTING 73 MG/DL (70-100); POTASSIUM SERUM 4.1 MEQ/L (3.5-5.1); SODIUM LEVEL 143 MEQ/L (136-145); TOTAL 25(OH) VITAMIN D 62.3 NG/ML (30.0-100.0); TOTAL PROTEIN 6.5 GM/DL (6.4-8.2)
== END ==
LOC: M PLALAB 13:16
PROVIDERS: ATTEND Nurse Practitioner Family
DX: E55.9 Vitamin D deficiency, unspecified (principal)

== ENCOUNTER → 2021-01-13 | Outpatient (CLI) | payer MEDICAID, MEDICARE ==
[~2021-01-13] MED LIST changes: +DOXY-443 PO; -DOXY1CAP62 PO; -LISI-898 PO; +LISI5TAB11 PO; -OMEP-221 PO; +OMEP40CA5 PO
== END ==
LOC: M RAD 14:09
PROVIDERS: ATTEND Nurse Practitioner Family
DX: F17.210 Nicotine dependence, cigarettes, uncomplicated (principal)

== ENCOUNTER → 2021-04-01 | Outpatient (CLI) | payer MEDICARE, MEDICAID ==
[~2021-04-01] MED LIST changes: +LISI-898 PO; -LISI5TAB11 PO; +OMEP-221 PO; -OMEP40CA5 PO
--- NOTE | 2021-04-01 10:11 | REP ---
INDICATION: RUQ ABD PAIN CIRRHOSIS ? ASCITES EVAL ORGANS. COMPARISON: 05/24/2020. TECHNIQUE: Real-time sonographic evaluation of right upper quadrant performed. FINDINGS: The gallbladder demonstrates no evidence of intraluminal calculi, wall thickening or pericholecystic fluid. Mild gallbladder sludge. There is no intrahepatic or extrahepatic biliary dilatation, common bile duct measures 5 mm in maximum diameter. Liver demonstrates diffuse heterogeneous echotexture consistent with history of cirrhosis. No liver mass is seen. The visualized pancreas is grossly unremarkable, not optimally seen due to overlying bowel gas. The right kidney demonstrates no hydronephrosis, with a normal size of 12.4 cm in length. No free fluid is seen. IMPRESSION: No evidence of ascites. Mild gallbladder sludge. The liver has a cirrhotic appearance with no gross mass. <Electronically signed by Mark Ott > 04/01/21 1007
== END ==
LOC: M RAD 07:43
PROVIDERS: ATTEND Physician Assistant
DX: K70.30 Alcoholic cirrhosis of liver without ascites (principal); M54.6 Pain in thoracic spine; R10.11 Right upper quadrant pain

== ENCOUNTER → 2021-04-01 | Outpatient (CLI) | payer MEDICARE, MEDICAID ==
[2021-04-01 10:29] LABS: WHITE BLOOD COUNT 7.1 10^3/uL (4.0-10.0)
[2021-04-01 10:30] LABS: BASO % 0.6 % (0.0-1.0); EOS # 0.2 10^3/uL (0.0-0.5); EOS % 2.1 % (0.0-3.0); HEMOGLOBIN 15.8 g/dl (12.0-15.5); LYMPH # 3.5 10^3/uL (1.5-5.0); LYMPH % 49.2 % (24.0-44.0); MEAN CORPUSCULAR HEMOGLOBIN 29.9 pg (27.0-33.0); MEAN CORPUSCULAR HGB CONC 33.6 g/dl (32.0-36.5); MONO # 0.6 10^3/uL (0.0-0.8); MONO % 8.1 % (2.0-8.0); NEUTROPHILS # 2.8 10^3/uL (1.5-8.5); NEUTROPHILS % 39.9 % (36.0-66.0); PLATELET COUNT, AUTOMATED 113 10^3/uL (150-450); RED BLOOD COUNT 5.28 10^6/uL (4.00-5.40)
[2021-04-01 10:32] LABS: ALBUMIN 3.8 GM/DL (3.2-5.2); ALT/SGPT 26 U/L (12-78); BILIRUBIN,TOTAL 0.4 MG/DL (0.2-1.0); BLOOD UREA NITROGEN 10 MG/DL (7-18); CALCIUM LEVEL 9.6 MG/DL (8.8-10.2); CARBON DIOXIDE LEVEL 27 MEQ/L (21-32); CHLORIDE LEVEL 108 MEQ/L (98-107); CREATININE FOR GFR 0.76 MG/DL (0.55-1.30); GLOMERULAR FILTRATION RATE > 60.0 (>39); GLUCOSE, FASTING 189 MG/DL (70-100); POTASSIUM SERUM 4.2 MEQ/L (3.5-5.1); SODIUM LEVEL 140 MEQ/L (136-145)
== END ==
LOC: M PLALAB 08:44
PROVIDERS: ATTEND Physician Assistant
DX: E11.65 Type 2 diabetes mellitus with hyperglycemia (principal)

== ENCOUNTER → 2021-04-01 | Outpatient (CLI) | payer MEDICARE, MEDICAID ==
--- NOTE | 2021-04-01 10:58 | REP ---
INDICATION: PAIN IN THORACIC SPINE. COMPARISON: Chest radiographs 03/28/2015. TECHNIQUE: AP and lateral thoracic spine. FINDINGS: There is no evidence of compression fracture or malalignment. There is normal thoracic kyphosis. There is moderate diffuse spurring. There is lzev-co-nlagwmao disc space narrowing and subchondral sclerosis diffusely. Posterior elements appear intact. There is slight curvature convex to the right. IMPRESSION: Moderate degenerative changes. No compression fracture. <Electronically signed by Mark Ott > 04/01/21 2814
== END ==
LOC: M PLAIMG 09:00
PROVIDERS: ATTEND Nurse Practitioner Family
DX: M54.6 Pain in thoracic spine (principal)

== ENCOUNTER → 2021-05-19 | Outpatient (CLI) | payer MEDICARE, MEDICAID ==
[~2021-05-19] MED LIST changes: -LISI-898 PO; +LISI5TAB11 PO; -OMEP-221 PO; +OMEP40CA5 PO
[2021-05-19 17:31] LABS: BASO # 0.1 10^3/uL (0.0-0.2); BASO % 0.6 % (0.0-1.0); EOS # 0.1 10^3/uL (0.0-0.5); EOS % 1.1 % (0.0-3.0); HEMATOCRIT 46.3 % (36.0-47.0); HEMOGLOBIN 15.7 g/dl (12.0-15.5); LYMPH # 3.1 10^3/uL (1.5-5.0); LYMPH % 37.5 % (24.0-44.0); MEAN CORPUSCULAR HGB CONC 33.9 g/dl (32.0-36.5); MEAN CORPUSCULAR VOLUME 88.5 fl (80.0-96.0); MONO # 0.6 10^3/uL (0.0-0.8); MONO % 7.1 % (2.0-8.0); NEUTROPHILS # 4.4 10^3/uL (1.5-8.5); NEUTROPHILS % 53.3 % (36.0-66.0); PLATELET COUNT, AUTOMATED 140 10^3/uL (150-450); RED BLOOD COUNT 5.23 10^6/uL (4.00-5.40); WHITE BLOOD COUNT 8.3 10^3/uL (4.0-10.0)
[2021-05-19 17:35] LABS: HEMOGLOBIN A1c 8.7 %
[2021-05-19 17:48] LABS: ALT/SGPT 41 U/L (12-78); BILIRUBIN,TOTAL 0.3 MG/DL (0.2-1.0); BLOOD UREA NITROGEN 21 MG/DL (7-18); CALCIUM LEVEL 11.8 MG/DL (8.8-10.2); CARBON DIOXIDE LEVEL 26 MEQ/L (21-32); CHLORIDE LEVEL 105 MEQ/L (98-107); CHOLESTEROL LEVEL 314 MG/DL (<200); CHOLESTEROL RISK RATIO 5.814 (<5); CREATININE FOR GFR 0.77 MG/DL (0.55-1.30); GLOMERULAR FILTRATION RATE > 60.0 (>39); GLUCOSE, FASTING 270 MG/DL (70-100); HDL CHOLESTEROL 54 MG/DL (>40); LDL CHOLESTEROL 214 MG/DL (<100); NON-HDL-C 260 MG/DL; SODIUM LEVEL 140 MEQ/L (136-145); TOTAL PROTEIN 7.2 GM/DL (6.4-8.2); TRIGLYCERIDES LEVEL 230 MG/DL (<150)
[2021-05-19 17:54] LABS: PTH INTACT 22.3 PG/ML (18.5-88.0); TOTAL 25(OH) VITAMIN D 17.5 NG/ML (30.0-100.0)
== END ==
LOC: M PLALAB 14:37
PROVIDERS: ATTEND Nurse Practitioner Family
DX: E11.65 Type 2 diabetes mellitus with hyperglycemia (principal); E78.2 Mixed hyperlipidemia; E55.9 Vitamin D deficiency, unspecified; I10 Essential (primary) hypertension; Z79.899 Other long term (current) drug therapy

== ENCOUNTER → 2021-09-09 | Outpatient (CLI) | payer MEDICARE, MEDICAID ==
[2021-09-09 10:51] LABS: HEMOGLOBIN A1c 10.1 %
[2021-09-09 10:54] LABS: HEMOGLOBIN 16.2 g/dl (12.0-15.5); MEAN CORPUSCULAR HEMOGLOBIN 30.1 pg (27.0-33.0); MEAN CORPUSCULAR HGB CONC 33.1 g/dl (32.0-36.5); MEAN CORPUSCULAR VOLUME 90.9 fl (80.0-96.0); RED BLOOD COUNT 5.39 10^6/uL (4.00-5.40); WHITE BLOOD COUNT 8.5 10^3/uL (4.0-10.0)
[2021-09-09 10:55] LABS: BASO % 0.4 % (0.0-1.0); EOS # 0.1 10^3/uL (0.0-0.5); EOS % 1.6 % (0.0-3.0); LYMPH # 2.8 10^3/uL (1.5-5.0); LYMPH % 32.6 % (24.0-44.0); MONO # 0.6 10^3/uL (0.0-0.8); MONO % 6.8 % (2.0-8.0); NEUTROPHILS % 58.2 % (36.0-66.0); PLATELET COUNT, AUTOMATED 120 10^3/uL (150-450)
[2021-09-09 11:07] LABS: ALBUMIN 3.9 GM/DL (3.2-5.2); ALT/SGPT 60 U/L (12-78); BILIRUBIN,TOTAL 0.4 MG/DL (0.2-1.0); BLOOD UREA NITROGEN 23 MG/DL (7-18); CALCIUM LEVEL 9.7 MG/DL (8.8-10.2); CARBON DIOXIDE LEVEL 27 MEQ/L (21-32); CHLORIDE LEVEL 105 MEQ/L (98-107); CHOLESTEROL LEVEL 304 MG/DL (<200); CHOLESTEROL RISK RATIO 4.903 (<5); CREATININE FOR GFR 0.74 MG/DL (0.55-1.30); GLOMERULAR FILTRATION RATE > 60.0 (>39); GLUCOSE, FASTING 221 MG/DL (70-100); HDL CHOLESTEROL 62 MG/DL (>40); LDL CHOLESTEROL 209 MG/DL (<100); NON-HDL-C 242 MG/DL; POTASSIUM SERUM 4.1 MEQ/L (3.5-5.1); PTH INTACT 77.6 PG/ML (18.5-88.0); SODIUM LEVEL 139 MEQ/L (136-145); TOTAL 25(OH) VITAMIN D 21.5 NG/ML (30.0-100.0); TOTAL PROTEIN 7.1 GM/DL (6.4-8.2); TRIGLYCERIDES LEVEL 167 MG/DL (<150)
== END ==
LOC: M PLALAB 08:33
PROVIDERS: ATTEND Nurse Practitioner Family
DX: E11.65 Type 2 diabetes mellitus with hyperglycemia (principal)

== ENCOUNTER → 2021-12-08 | Outpatient (CLI) | payer MEDICARE, MEDICAID | LOC: M WHC 14:32 | PROVIDERS: ATTEND Nurse Practitioner Family | DX: Z12.31 Encounter for screening mammogram for malignant neoplasm of breast (principal) ==

== ENCOUNTER → 2022-01-12 | Outpatient (CLI) | payer MEDICARE, MEDICAID ==
[2022-01-12 14:03] LABS: BASO % 0.5 % (0.0-1.0); EOS # 0.1 10^3/uL (0.0-0.5); EOS % 2.3 % (0.0-3.0); HEMATOCRIT 45.7 % (36.0-47.0); HEMOGLOBIN 14.8 g/dl (12.0-15.5); LYMPH # 2.3 10^3/uL (1.5-5.0); LYMPH % 39.4 % (24.0-44.0); MEAN CORPUSCULAR HEMOGLOBIN 29.8 pg (27.0-33.0); MEAN CORPUSCULAR HGB CONC 32.4 g/dl (32.0-36.5); MONO # 0.5 10^3/uL (0.0-0.8); MONO % 8.7 % (2.0-8.0); NEUTROPHILS # 2.8 10^3/uL (1.5-8.5); NEUTROPHILS % 48.8 % (36.0-66.0); PLATELET COUNT, AUTOMATED 113 10^3/uL (150-450); RED BLOOD COUNT 4.97 10^6/uL (4.00-5.40); WHITE BLOOD COUNT 5.7 10^3/uL (4.0-10.0)
[2022-01-12 14:45] LABS: HEMOGLOBIN A1c 7.2 %
[2022-01-12 14:55] LABS: ALBUMIN 3.7 GM/DL (3.2-5.2); ALT/SGPT 65 U/L (12-78); BILIRUBIN,TOTAL 0.5 MG/DL (0.2-1.0); BLOOD UREA NITROGEN 17 MG/DL (7-18); CALCIUM LEVEL 9.3 MG/DL (8.8-10.2); CARBON DIOXIDE LEVEL 26 MEQ/L (21-32); CHLORIDE LEVEL 107 MEQ/L (98-107); CHOLESTEROL LEVEL 287 MG/DL (<200); CHOLESTEROL RISK RATIO 5.125 (<5); CREATININE FOR GFR 0.67 MG/DL (0.55-1.30); FREE T4 1.01 NG/DL (0.76-1.46); GLOMERULAR FILTRATION RATE > 60.0 (>39); GLUCOSE, FASTING 179 MG/DL (70-100); HDL CHOLESTEROL 56 MG/DL (>40); LDL CHOLESTEROL 202 MG/DL (<100); NON-HDL-C 231 MG/DL; POTASSIUM SERUM 3.9 MEQ/L (3.5-5.1); SODIUM LEVEL 138 MEQ/L (136-145); THYROID STIMULATING HORMONE 0.951 uIU/ML (0.358-3.740); TRIGLYCERIDES LEVEL 146 MG/DL (<150)
[2022-01-12 15:32] LABS: TOTAL 25(OH) VITAMIN D 21.6 NG/ML (30.0-100.0)
== END ==
LOC: M PLALAB 09:36
PROVIDERS: ATTEND Nurse Practitioner Family
DX: E11.65 Type 2 diabetes mellitus with hyperglycemia (principal)

== ENCOUNTER → 2022-07-10 | Outpatient (CLI) | payer MEDICARE, MEDICAID ==
[~2022-07-10] MED LIST changes: -PAXI40TA10 PO; +PAXI40TA12 PO
== END ==
LOC: M RAD 16:05
PROVIDERS: ATTEND Nurse Practitioner Family
DX: Z12.2 Encounter for screening for malignant neoplasm of respiratory organs (principal); F17.210 Nicotine dependence, cigarettes, uncomplicated; R91.8 Other nonspecific abnormal finding of lung field

== ENCOUNTER → 2022-08-11 | Outpatient (CLI) | payer MEDICARE, MEDICAID ==
[2022-08-11 15:16] LABS: BASO % 0.4 % (0.0-1.0); EOS # 0.1 10^3/uL (0.0-0.5); EOS % 1.2 % (0.0-3.0); HEMATOCRIT 47.3 % (36.0-47.0); HEMOGLOBIN 15.5 g/dl (12.0-15.5); LYMPH # 2.8 10^3/uL (1.5-5.0); MEAN CORPUSCULAR HEMOGLOBIN 29.2 pg (27.0-33.0); MEAN CORPUSCULAR HGB CONC 32.8 g/dl (32.0-36.5); MEAN CORPUSCULAR VOLUME 89.2 fl (80.0-96.0); MONO # 0.6 10^3/uL (0.0-0.8); MONO % 6.3 % (2.0-8.0); NEUTROPHILS % 62.8 % (36.0-66.0); WHITE BLOOD COUNT 9.5 10^3/uL (4.0-10.0)
[2022-08-11 15:28] LABS: CREATININE, URINE 129.7 MG/DL
[2022-08-11 15:32] LABS: ALKALINE PHOSPHATASE 89 U/L (46-116); ALT/SGPT 28 U/L (7.0-40); AST/SGOT 21 U/L (<34); BILIRUBIN,TOTAL 0.7 MG/DL (0.3-1.2); BLOOD UREA NITROGEN 11 MG/DL (9-23); CALCIUM LEVEL 9.8 MG/DL (8.3-10.6); CARBON DIOXIDE LEVEL 27 MMOL/L (20-31); CHLORIDE LEVEL 103 MMOL/L (98-107); CHOLESTEROL LEVEL 323 MG/DL (<200); CHOLESTEROL RISK RATIO 5.62 (<5); GLOMERULAR FILTRATION RATE > 60.0 (>39); GLUCOSE, FASTING 239 MG/DL (74-106); HDL CHOLESTEROL 57.4 MG/DL (>40); LDL CHOLESTEROL 229.4 MG/DL (<100); NON-HDL-C 265.6 MG/DL; SODIUM LEVEL 139 MMOL/L (136-145); TOTAL PROTEIN 6.9 G/DL (5.7-8.2); TRIGLYCERIDES LEVEL 181 MG/DL (<150)
[2022-08-11 15:40] LABS: HEMOGLOBIN A1c 11.8 % (4.0-6.0)
[2022-08-11 15:43] LABS: MAU/CREAT RATIO 567.4 MCG/MG (0.0-30.0)
[2022-08-11 16:46] LABS: PLATELET COUNT, AUTOMATED 90 10^3/uL (150-450)
== END ==
LOC: M PLALAB 09:58
PROVIDERS: ATTEND Nurse Practitioner Family
DX: E11.65 Type 2 diabetes mellitus with hyperglycemia (principal)

== ENCOUNTER → 2022-08-17 | Outpatient (CLI) | payer MEDICARE, MEDICAID ==
[2022-08-17 13:46] LABS: BASO % 0.4 % (0.0-1.0); EOS # 0.1 10^3/uL (0.0-0.5); EOS % 1.8 % (0.0-3.0); HEMATOCRIT 46.3 % (36.0-47.0); HEMOGLOBIN 15.5 g/dl (12.0-15.5); LYMPH # 3.1 10^3/uL (1.5-5.0); LYMPH % 45.3 % (24.0-44.0); MEAN CORPUSCULAR HEMOGLOBIN 29.4 pg (27.0-33.0); MEAN CORPUSCULAR HGB CONC 33.5 g/dl (32.0-36.5); MEAN CORPUSCULAR VOLUME 87.7 fl (80.0-96.0); MONO # 0.4 10^3/uL (0.0-0.8); MONO % 5.8 % (2.0-8.0); NEUTROPHILS # 3.2 10^3/uL (1.5-8.5); NEUTROPHILS % 46.6 % (36.0-66.0); PLATELET COUNT, AUTOMATED 108 10^3/uL (150-450); RED BLOOD COUNT 5.28 10^6/uL (4.00-5.40); WHITE BLOOD COUNT 6.8 10^3/uL (4.0-10.0)
[2022-08-17 14:00] LABS: INR 0.94; PROTHROMBIN TIME 12.8 SECONDS (12.5-14.5)
[2022-08-17 14:04] LABS: ALBUMIN 3.8 G/DL (3.2-5.2); BILIRUBIN,DIRECT 0.2 MG/DL (<0.4); BILIRUBIN,TOTAL 0.6 MG/DL (0.3-1.2); TOTAL PROTEIN 6.9 G/DL (5.7-8.2)
== END ==
LOC: M LAB 13:13
PROVIDERS: ATTEND Internal Medicine Gastroenterology
DX: K74.69 Other cirrhosis of liver (principal); R19.7 Diarrhea, unspecified

== ENCOUNTER 2023-03-17 19:57 | Emergency (ER) | payer MEDICARE, MEDICAID ==
[~2023-03-17] VITALS: Ht 154.9 cm; Wt 61.4 kg
[~2023-03-17 19:57] MED LIST changes: +CLON1TAB8 PO; +FAMO1TAB11 PO; +JARD1TAB3 PO; +QUET50TA4 PO; +ROPI5TAB19 PO; +VITA-16 PO; +VITA500045 PO; +ZALE10CA PO
[2023-03-17] MEDS ORDERED: KETOROLAC 60MG 2ML VIAL IM ONE (20:50)
[2023-03-17] MEDS ORDERED: methocarbamoL 500 MG TAB PO ONE (20:50)
[2023-03-17] MEDS ORDERED: KETO10TAB PO (22:24)
[2023-03-17] MEDS ORDERED: METH-1164 PO (22:24)
[2023-03-17 22:40] VITALS: BP 174/74; TEMP 97.7; O2SAT 98
== END 2023-03-17 22:40 | disposition home or self-care (01) ==
LOC: M ED 19:57 → EDBD 19:57 → M ED 22:40
DX: S39.012A Strain of muscle, fascia and tendon of lower back, initial encounter (principal); X50.0XXA Overexertion from strenuous movement or load, initial encounter; Y93.89 Activity, other specified; E11.9 Type 2 diabetes mellitus without complications; I10 Essential (primary) hypertension; F41.9 Anxiety disorder, unspecified; F32.9 Major depressive disorder, single episode, unspecified; F17.200 Nicotine dependence, unspecified, uncomplicated; Z79.4 Long term (current) use of insulin; Z79.899 Other long term (current) drug therapy
CPT/HCPCS: 72072; 72100; 96372; 99284; J1885

== ENCOUNTER → 2023-07-15 | Outpatient (REF) | payer MEDICARE, MEDICAID ==
[~2023-07-15] MED LIST changes: +KETO10TAB PO; +METH-1164 PO
[2023-07-15 16:55] LABS: BASO % 0.4 % (0.0-1.0); EOS # 0.1 10^3/uL (0.0-0.5); EOS % 1.3 % (0.0-3.0); HEMATOCRIT 47.5 % (36.0-47.0); HEMOGLOBIN 15.6 g/dl (12.0-15.5); LYMPH # 2.6 10^3/uL (1.5-5.0); LYMPH % 34.2 % (24.0-44.0); MEAN CORPUSCULAR HEMOGLOBIN 29.9 pg (27.0-33.0); MEAN CORPUSCULAR HGB CONC 32.8 g/dl (32.0-36.5); MONO # 0.4 10^3/uL (0.0-0.8); MONO % 5.6 % (2.0-8.0); NEUTROPHILS # 4.5 10^3/uL (1.5-8.5); NEUTROPHILS % 58.4 % (36.0-66.0); PLATELET COUNT, AUTOMATED 101 10^3/uL (150-450); RED BLOOD COUNT 5.22 10^6/uL (4.00-5.40); WHITE BLOOD COUNT 7.7 10^3/uL (4.0-10.0)
[2023-07-15 17:10] LABS: ALBUMIN 4.2 G/DL (3.2-5.2); ALKALINE PHOSPHATASE 91 U/L (46-116); ALT/SGPT 47 U/L (7.0-40); AST/SGOT 26 U/L (<34); BILIRUBIN,TOTAL 0.4 MG/DL (0.3-1.2); BLOOD UREA NITROGEN 16 MG/DL (9-23); CALCIUM LEVEL 9.7 MG/DL (8.3-10.6); CARBON DIOXIDE LEVEL 29 MMOL/L (20-31); CHLORIDE LEVEL 105 MMOL/L (98-107); CHOLESTEROL LEVEL 205 MG/DL (<200); CHOLESTEROL RISK RATIO 4.02 (<5); CREATININE FOR GFR 0.67 MG/DL (0.55-1.30); GLOMERULAR FILTRATION RATE > 60.0 (>39); GLUCOSE, FASTING 159 MG/DL (74-106); HDL CHOLESTEROL 50.9 MG/DL (>40); LDL CHOLESTEROL 127.9 MG/DL (<100); NON-HDL-C 154.1 MG/DL; POTASSIUM SERUM 4.3 MMOL/L (3.5-5.1); SODIUM LEVEL 139 MMOL/L (136-145); TOTAL PROTEIN 6.8 G/DL (5.7-8.2); TRIGLYCERIDES LEVEL 131 MG/DL (<150)
[2023-07-15 17:11] LABS: THYROID STIMULATING HORMONE 1.413 uIU/ML (0.55-4.78)
[2023-07-15 17:35] LABS: HIV 1&2 SCREEN NEGATIVE (NEGATIVE)
[2023-07-15 17:42] LABS: HEPATITIS C VIRUS ABY INDEX < 0.02 INDEX (<0.8)
== END ==
LOC: M LAB REF 16:21
PROVIDERS: ATTEND Physician Assistant
DX: E78.5 Hyperlipidemia, unspecified (principal); Z79.4 Long term (current) use of insulin; I10 Essential (primary) hypertension; Z11.9 Encounter for screening for infectious and parasitic diseases, unspecified; E55.9 Vitamin D deficiency, unspecified

== ENCOUNTER → 2023-10-15 | Outpatient (REF) | payer MEDICARE, MEDICAID ==
[~2023-10-15] MED LIST changes: +DOXY-323 PO; -DOXY-443 PO; +MAGN250C PO; +PRIM250T8 PO; +VITA200028 PO
[2023-10-15 16:37] LABS: APPEARANCE, URINE HAZY (CLEAR); BACTERIA, URINE AUTO NEGATIVE (NEGATIVE); BILIRUBIN, URINE AUTO NEGATIVE (NEGATIVE); BLOOD, URINE BLOOD NEGATIVE (NEGATIVE); COLOR, URINE YELLOW (YELLOW); GLUCOSE, URINE (UA) AUTO NEGATIVE (NEGATIVE); KETONE, URINE AUTO NEGATIVE (NEGATIVE); LEUKOCYTE ESTERASE, URINE AUTO NEGATIVE (NEGATIVE); NITRITE, URINE AUTO NEGATIVE (NEGATIVE); PROTEIN, URINE AUTO 3+ mg/dL (NEGATIVE); RBC, URINE AUTO 2 /HPF (0-3); SPECIFIC GRAVITY URINE AUTO 1.011 (1.002-1.035); SQUAMOUS EPITHELIAL CELL UR AU 3 /HPF (0-6); WBC, URINE AUTO 1 /HPF (0-3)
[2023-10-15 17:12] LABS: INR 1.09; PARTIAL THROMBOPLASTIN TIME 36.1 SECONDS (24.8-34.2); PROTHROMBIN TIME 13.8 SECONDS (12.5-14.5)
[2023-10-15 17:48] LABS: CREATININE, URINE 65.9 MG/DL
[2023-10-15 18:01] LABS: MAU/CREAT RATIO 1201.8 MCG/MG (0.0-30.0)
[2023-10-15 18:27] LABS: ALBUMIN 3.9 G/DL (3.2-5.2); ALKALINE PHOSPHATASE 97 U/L (46-116); ALT/SGPT 76 U/L (7.0-40); AST/SGOT 39 U/L (<34); BILIRUBIN,TOTAL 0.6 MG/DL (0.3-1.2); BLOOD UREA NITROGEN 8 MG/DL (9-23); CARBON DIOXIDE LEVEL 31 MMOL/L (20-31); CHLORIDE LEVEL 103 MMOL/L (98-107); GLOMERULAR FILTRATION RATE > 60.0 (>39); GLUCOSE, FASTING 98 MG/DL (74-106); POTASSIUM SERUM 3.9 MMOL/L (3.5-5.1); SODIUM LEVEL 139 MMOL/L (136-145); TOTAL PROTEIN 6.7 G/DL (5.7-8.2)
== END ==
LOC: M LAB REF 16:06
PROVIDERS: ATTEND Physician Assistant
DX: I10 Essential (primary) hypertension (principal); K74.60 Unspecified cirrhosis of liver

== ENCOUNTER 2024-03-02 05:58 | Day surgery (SDC) | payer MEDICAID, MEDICARE ==
[~2024-03-02] VITALS: Ht 154.9 cm; Wt 60.3 kg
[~2024-03-02 05:58] MED LIST changes: -DOXY-323 PO; +DOXY-441 PO
[2024-03-02] MEDS ORDERED: PHENYLEPHRINE 10% OPHTH SOL 5ML OD PRN (06:00)
[2024-03-02] MEDS: LIDOCAINE 3.5 % 1ML OPHTH TOPICAL GEL OU ONE (06:00)
[2024-03-02] MEDS: OFLOXACIN 0.3 % (OCUFLOX) OPTH SOL 5ML OD ONE (06:00)
[2024-03-02] MEDS ORDERED: ESZO1TAB6 PO (06:50)
[2024-03-02] MEDS ORDERED: fentaNYL 100 MCG/2 ML INJECTION As Ordered ONE (07:17)
[2024-03-02] MEDS: ATROPINE SULFATE 1% OPHTH SOLN 2ML BTL OD SCH (07:36)
[2024-03-02] MEDS: TROPICAMIDE 1% OPHTH SOLN 15ML OD SCH (07:36)
[2024-03-02] MEDS: PHENYLEPHRINE 2.5% OPHTH SOL 2ML OD SCH (07:36)
[2024-03-02] MEDS: CEFUROXIME 1MG/0.1ML INTRACAMERAL INJ As Ordered ONE (07:56)
[2024-03-02] MEDS: BSS IRRIG/VANCO(10MG)/TOBRA(5MG)/EPINEPH(1:1000-0.5CC)500ML BAG-ORONLY As Ordered ONE (07:56)
[2024-03-02] MEDS: LIDOCAINE 1% SDV 5ML VIAL As Ordered ONE (07:56)
[2024-03-02 08:04] VITALS: BP 149/67; TEMP 98.6; O2SAT 95
== END 2024-03-02 08:36 | disposition home or self-care (01) ==
LOC: M SDC 05:58
PROVIDERS: ATTEND Ophthalmology
DX: E11.36 Type 2 diabetes mellitus with diabetic cataract (principal); H25.11 Age-related nuclear cataract, right eye; I10 Essential (primary) hypertension; E78.00 Pure hypercholesterolemia, unspecified; K74.60 Unspecified cirrhosis of liver; K76.0 Fatty (change of) liver, not elsewhere classified; Z79.4 Long term (current) use of insulin; Z79.899 Other long term (current) drug therapy; F17.210 Nicotine dependence, cigarettes, uncomplicated
CPT/HCPCS: 66984; J0697; J3010; V2632

== ENCOUNTER → 2024-03-09 | Outpatient (REF) | payer MEDICARE ==
[~2024-03-09] MED LIST changes: +ESZO1TAB6 PO
[2024-03-09 20:07] LABS: HEMOGLOBIN A1c 6.5 % (4.0-6.0)
[2024-03-09 20:16] LABS: ALBUMIN 3.9 G/DL (3.2-5.2); ALKALINE PHOSPHATASE 79 U/L (35-104); ALT/SGPT 31 U/L (7.0-40); AST/SGOT 19 U/L (<34); BILIRUBIN,TOTAL 0.6 MG/DL (0.3-1.2); BLOOD UREA NITROGEN 16 MG/DL (9-23); CALCIUM LEVEL 10.5 MG/DL (8.3-10.6); CARBON DIOXIDE LEVEL 29 MMOL/L (20-31); CHLORIDE LEVEL 106 MMOL/L (98-107); CHOLESTEROL LEVEL 222 MG/DL (<200); CHOLESTEROL RISK RATIO 3.49 (<5); GLOMERULAR FILTRATION RATE > 60.0 (>39); GLUCOSE, FASTING 119 MG/DL (74-106); HDL CHOLESTEROL 63.5 MG/DL (>40); LDL CHOLESTEROL 129.9 MG/DL (<100); NON-HDL-C 158.5 MG/DL; POTASSIUM SERUM 4.9 MMOL/L (3.5-5.1); SODIUM LEVEL 143 MMOL/L (136-145); TOTAL PROTEIN 7.1 G/DL (5.7-8.2); TRIGLYCERIDES LEVEL 143 MG/DL (<150)
== END ==
LOC: M LAB REF 19:04
PROVIDERS: ATTEND Physician Assistant
DX: Z79.4 Long term (current) use of insulin (principal)

== ENCOUNTER → 2024-03-09 | Outpatient (REF) | payer MEDICARE ==
[2024-03-09 13:43] LABS: CREATININE, URINE 113.6 MG/DL
[2024-03-09 13:58] LABS: MAU/CREAT RATIO 676.9 MCG/MG (0.0-30.0)
== END ==
LOC: M LAB REF 12:55
PROVIDERS: ATTEND Physician Assistant
DX: Z79.4 Long term (current) use of insulin (principal)

== ENCOUNTER 2024-03-16 11:05 | Day surgery (SDC) | payer MEDICARE ==
[~2024-03-16] VITALS: Ht 154.9 cm; Wt 59.3 kg
[~2024-03-16 11:05] MED LIST changes: +ATROPINE SULFATE 1% OPHTH SOLN 2ML BTL OS SCH; +PHENYLEPHRINE 10% OPHTH SOL 5ML OS PRN
[2024-03-16] MEDS ORDERED: fentaNYL 100 MCG/2 ML INJECTION As Ordered ONE (11:21)
[2024-03-16] MEDS ORDERED: MIDAZOLAM INJ 2MG/2ML VIAL As Ordered ONE (11:21)
[2024-03-16] MEDS: LIDOCAINE 3.5 % 1ML OPHTH TOPICAL GEL OU ONE (11:30)
[2024-03-16] MEDS: PHENYLEPHRINE 2.5% OPHTH SOL 2ML OS SCH (11:30)
[2024-03-16] MEDS: TROPICAMIDE 1% OPHTH SOLN 15ML OS SCH (11:30)
[2024-03-16] MEDS: CYCLOPENTOLATE 1% OPHTH SOLN 2ML BTL OS SCH (11:30)
[2024-03-16] MEDS: OFLOXACIN 0.3 % (OCUFLOX) OPTH SOL 5ML OS ONE (11:30)
[2024-03-16] MEDS ORDERED: JANU50TA25 PO (11:59)
[2024-03-16] MEDS ORDERED: OMEP40CA5 PO (11:59)
[2024-03-16] MEDS: LIDOCAINE 1% SDV 5ML VIAL As Ordered ONE (12:11)
[2024-03-16] MEDS: BSS IRRIG/VANCO(10MG)/TOBRA(5MG)/EPINEPH(1:1000-0.5CC)500ML BAG-ORONLY As Ordered ONE (12:11)
[2024-03-16] MEDS: CEFUROXIME 1MG/0.1ML INTRACAMERAL INJ As Ordered ONE (12:12)
[2024-03-16 12:25] VITALS: BP 145/67; TEMP 97.2; O2SAT 96
== END 2024-03-16 13:04 | disposition home or self-care (01) ==
LOC: M SDC 11:05
PROVIDERS: ATTEND Ophthalmology
DX: E11.36 Type 2 diabetes mellitus with diabetic cataract (principal); H25.12 Age-related nuclear cataract, left eye; I10 Essential (primary) hypertension; E78.00 Pure hypercholesterolemia, unspecified; K76.0 Fatty (change of) liver, not elsewhere classified; K74.60 Unspecified cirrhosis of liver; K21.9 Gastro-esophageal reflux disease without esophagitis; Z79.899 Other long term (current) drug therapy; Z79.4 Long term (current) use of insulin; F17.210 Nicotine dependence, cigarettes, uncomplicated
CPT/HCPCS: 66984; J0697; J2250; J3010; V2632

== ENCOUNTER → 2024-06-14 | Outpatient (CLI) | payer MEDICARE ==
[~2024-06-14] MED LIST changes: -ATROPINE SULFATE 1% OPHTH SOLN 2ML BTL OS SCH; -PHENYLEPHRINE 10% OPHTH SOL 5ML OS PRN
== END ==
LOC: M EKG 14:55
PROVIDERS: ATTEND Physician Assistant
DX: R00.2 Palpitations (principal)

== ENCOUNTER → 2025-01-02 | Outpatient (REF) | payer MEDICARE ==
[~2025-01-02] MED LIST changes: +ERGO125013 PO; -VITA500045 PO
[2025-01-02 18:20] LABS: APPEARANCE, URINE CLEAR (CLEAR); BACTERIA, URINE AUTO NEGATIVE (NEGATIVE); BILIRUBIN, URINE AUTO NEGATIVE (NEGATIVE); BLOOD, URINE BLOOD NEGATIVE (NEGATIVE); GLUCOSE, URINE (UA) AUTO 3+ mg/dL (NEGATIVE); KETONE, URINE AUTO TRACE mg/dL (NEGATIVE); LEUKOCYTE ESTERASE, URINE AUTO NEGATIVE (NEGATIVE); NITRITE, URINE AUTO NEGATIVE (NEGATIVE); PROTEIN, URINE AUTO 3+ mg/dL (NEGATIVE); RBC, URINE AUTO 5 /HPF (0-3); SPECIFIC GRAVITY URINE AUTO 1.025 (1.002-1.035); SQUAMOUS EPITHELIAL CELL UR AU 1 /HPF (0-6); UROBILINOGEN, URINE AUTO 2.0 mg/dL (0.0-2.0); WBC, URINE AUTO 0 /HPF (0-3)
[2025-01-02 18:42] LABS: CREATININE, URINE 75.6 MG/DL
[2025-01-02 18:54] LABS: MALB URINE SIEMENS 1017.0 MG/L; MAU/CREAT RATIO 1345.2 MCG/MG (0.0-30.0)
== END ==
LOC: M LAB 16:18
PROVIDERS: ATTEND Physician Assistant
DX: Z79.4 Long term (current) use of insulin (principal); E11.9 Type 2 diabetes mellitus without complications

== ENCOUNTER → 2025-02-14 | Outpatient (CLI) | payer MEDICARE | LOC: M RAD 14:47 | PROVIDERS: ATTEND Nurse Practitioner Family | DX: R09.89 Other specified symptoms and signs involving the circulatory and respiratory systems (principal); K74.69 Other cirrhosis of liver; I65.23 Occlusion and stenosis of bilateral carotid arteries ==